=== PATIENT | male | born 1935 | race Caucasian/White ===

== ENCOUNTER 2019-01-04 11:45 | Inpatient (IN) | payer MEDICARE ==
[2019-01-04] MEDS ORDERED: SODIUM CHLORIDE 0.9% 1,000 ML IV STA (12:14)
[2019-01-04] MEDS ORDERED: IPRATROPIUM-ALBUTEROL 3 ML NEB INHALATION STA ×2 (12:14→14:11)
--- NOTE | 2019-01-04 12:33 | ED ---
SOB HPI - General Chief Complaint: Shortness of Breath Stated Complaint: SOB Time Seen by Provider: 01/04/19 11:53 Source: patient, RN notes reviewed, old records reviewed Mode of arrival: ambulatory Limitations: no limitations - History of Present Illness Initial Comments: This is a 3-year-old male the ER for evaluation patient's a poor historian bro drake to dementia. Patient presents with daughter from a care facility for evaluation regarding low blood pressure increasing shortness of breath and left breast for infection with cough. Patient himself is not getting any complaints currently. But daughter states patient has had significant shortness of breath and had a cough for about a week may or may not have had a fever she is unsure. EMS records as well as transfer paperwork is patient is a nonsmoker with no history of COPD, no known significant sick contacts. Patient does have significant heart history [facility] with history of CABG MD Complaint: shortness of breath, cough -: week(s) Severity: mild Consistency: constant Worsens With: exertion Known History Of: congestive heart failure Context: recent URI Associated Symptoms: denies other symptoms - Related Data Allergies Allergy/AdvReac Type Severity Reaction Status Date / Time Penicillins Allergy Unknown Verified 01/04/19 11:51 Review of Systems ROS Statement: Those systems with pertinent positive or pertinent negative responses have been documented in the HPI. ROS Other: All systems not noted in ROS Statement are negative. Past Medical History Past Medical History: Chest Pain / Angina, Heart Failure, Hyperlipidemia, Hypertension History of Any Multi-Drug Resistant Organisms: None Reported Past Surgical History: No Surgical Hx Reported Past Psychological History: No Psychological Hx Reported Smoking Status: Never smoker Past Alcohol Use History: None Reported Past Drug Use History: None Reported General Exam Limitations: no limitations General appearance: alert, in no apparent distress Head exam: Present: atraumatic, normocephalic, normal inspection Eye exam: Present: normal appearance, PERRL, EOMI. Absent: scleral icterus, conjunctival injection, periorbital swelling ENT exam: Present: normal exam, mucous membranes dry Neck exam: Present: normal inspection. Absent: tenderness, meningismus, lymphadenopathy Respiratory exam: Present: respiratory distress, wheezes, rhonchi, accessory muscle use, decreased breath sounds, prolonged expiratory. Absent: rales, stridor Cardiovascular Exam: Present: regular rate, normal rhythm, normal heart sounds. Absent: systolic murmur, diastolic murmur, rubs, gallop, clicks GI/Abdominal exam: Present: soft, normal bowel sounds. Absent: distended, tenderness, guarding, rebound, rigid Extremities exam: Present: normal inspection, full ROM, normal capillary refill. Absent: tenderness, pedal edema, joint swelling, calf tenderness Back exam: Present: normal inspection Neurological exam: Present: alert, oriented X3, CN II-XII intact Psychiatric exam: Present: normal affect, normal mood Skin exam: Present: warm, dry, intact, normal color. Absent: rash Course Vital Signs 01/04/19 01/04/19 01/04/19 11:47 12:32 12:50 Temperature 97.7 F Pulse Rate 71 93 99 Respiratory 24 Rate Blood Pressure 161/78 O2 Sat by Pulse 91 L Oximetry - Reevaluation(s) Reevaluation #1: 01/04/19 12:32 Medical records reviewed Reevaluation #2: 01/04/19 13:30 does feel better with acute breathing treatment Medical Decision Making - Medical Decision Making 83 male the admitted for COPD exacerbation,. Breathing Treatments and steroids - Lab Data Result diagrams: 01/04/19 12:15 01/04/19 12:15 Lab Results 01/04/19 01/04/19 01/04/19 Range/Units 12:15 12:15 12:15 WBC 9.9 (3.8-10.6) k/uL RBC 3.87 L (4.30-5.90) m/uL Hgb 12.6 L (13.0-17.5) gm/dL Hct 36.7 L (39.0-53.0) % MCV 95.0 (80.0-100.0) fL MCH 32.6 (25.0-35.0) pg MCHC 34.4 (31.0-37.0) g/dL RDW 15.3 (11.5-15.5) % Plt Count 212 (150-450) k/uL Neutrophils % 85 % Lymphocytes % 10 % Monocytes % 3 % Eosinophils % 1 % Basophils % 0 % Neutrophils # 8.5 H (1.3-7.7) k/uL Lymphocytes # 1.0 (1.0-4.8) k/uL Monocytes # 0.2 (0-1.0) k/uL Eosinophils # 0.1 (0-0.7) k/uL Basophils # 0.0 (0-0.2) k/uL PT 10.6 (9.0-12.0) sec INR 1.0 (<1.2) APTT 22.3 (22.0-30.0) sec Sodium 141 (137-145) mmol/L Potassium 4.4 (3.5-5.1) mmol/L Chloride 103 (98-107) mmol/L Carbon Dioxide 23 (22-30) mmol/L Anion Gap 15 mmol/L BUN 26 H (9-20) mg/dL Creatinine 1.35 H (0.66-1.25) mg/dL Est GFR (CKD-EPI)AfAm 55 (>60 ml/min/1.73 sqM) Est GFR (CKD-EPI)NonAf 48 (>60 ml/min/1.73 sqM) Glucose 130 H (74-99) mg/dL Calcium 9.7 (8.4-10.2) mg/dL Magnesium 1.6 (1.6-2.3) mg/dL Total Bilirubin 0.5 (0.2-1.3) mg/dL AST 51 (17-59) U/L ALT 52 (21-72) U/L Alkaline Phosphatase 107 (38-126) U/L Creatine Kinase 47 L (55-170) U/L Troponin I (0.000-0.034) ng/mL Total Protein 8.9 H (6.3-8.2) g/dL Albumin 4.1 (3.5-5.0) g/dL 01/04/19 Range/Units 12:15 WBC (3.8-10.6) k/uL RBC (4.30-5.90) m/uL Hgb (13.0-17.5) gm/dL Hct (39.0-53.0) % MCV (80.0-100.0) fL MCH (25.0-35.0) pg MCHC (31.0-37.0) g/dL RDW (11.5-15.5) % Plt Count (150-450) k/uL Neutrophils % % Lymphocytes % % Monocytes % % Eosinophils % % Basophils % % Neutrophils # (1.3-7.7) k/uL Lymphocytes # (1.0-4.8) k/uL Monocytes # (0-1.0) k/uL Eosinophils # (0-0.7) k/uL Basophils # (0-0.2) k/uL PT (9.0-12.0) sec INR (<1.2) APTT (22.0-30.0) sec Sodium (137-145) mmol/L Potassium (3.5-5.1) mmol/L Chloride (98-107) mmol/L Carbon Dioxide (22-30) mmol/L Anion Gap mmol/L BUN (9-20) mg/dL Creatinine (0.66-1.25) mg/dL Est GFR (CKD-EPI)AfAm (>60 ml/min/1.73 sqM) Est GFR (CKD-EPI)NonAf (>60 ml/min/1.73 sqM) Glucose (74-99) mg/dL Calcium (8.4-10.2) mg/dL Magnesium (1.6-2.3) mg/dL Total Bilirubin (0.2-1.3) mg/dL AST (17-59) U/L ALT (21-72) U/L Alkaline Phosphatase (38-126) U/L Creatine Kinase (55-170) U/L Troponin I 0.013 (0.000-0.034) ng/mL Total Protein (6.3-8.2) g/dL Albumin (3.5-5.0) g/dL - EKG Data -: EKG Interpreted by Me (EKG shows paced rhythm rate of 65, VA 214, QRS 90, QTc 422) - Radiology Data Radiology results: report reviewed (Chest x-rays negative for acute disease), image reviewed Disposition Clinical Impression: Acute exacerbation of chronic obstructive pulmonary disease Disposition: ADMITTED IP TO THIS HOSP Condition: Fair Is patient prescribed a controlled substance at d/c from ED?: No Referrals: Popeye Hicks MD [Primary Care Provider] - 1-2 days
[2019-01-04 12:38] LABS: Basophils % (A) 0 %; Eosinophils # (A) 0.1 k/uL (0-0.7); Eosinophils % (A) 1 %; HCT 36.7 % (39.0-53.0); HGB 12.6 gm/dL (13.0-17.5); Lymphocytes % (A) 10 %; MCH 32.6 pg (25.0-35.0); MCHC 34.4 g/dL (31.0-37.0); Mean Platelet Volume 6.4; Monocytes # (A) 0.2 k/uL (0-1.0); Monocytes % (A) 3 %; Neutrophils # (A) 8.5 k/uL (1.3-7.7); Neutrophils % (A) 85 %; Platelet Count 212 k/uL (150-450); RBC 3.87 m/uL (4.30-5.90); RDW 15.3 % (11.5-15.5); WBC 9.9 k/uL (3.8-10.6)
[2019-01-04 12:44] LABS: Albumin 4.1 g/dL (3.5-5.0); Calcium 9.7 mg/dL (8.4-10.2); Magnesium 1.6 mg/dL (1.6-2.3); Potassium 4.4 mmol/L (3.5-5.1); Total Bilirubin 0.5 mg/dL (0.2-1.3); Total Protein 8.9 g/dL (6.3-8.2)
[2019-01-04 12:46] LABS: Partial Thromboplastin Time 22.3 sec (22.0-30.0); Prothrombin Time 10.6 sec (9.0-12.0)
--- NOTE | 2019-01-04 13:17 | XR ---
EXAMINATION TYPE: XR chest 2V DATE OF EXAM: 01/04/2019 HISTORY: difficulty breathing. REFERENCE: NONE. FINDINGS: There has been a midline sternotomy. There is a bipolar pacemaker place on the left. The heart is mildly enlarged. The lungs are mildly overinflated but clear. Pleural space are clear. IMPRESSION: 1. COPD. 2. MILD CARDIOMEGALY.
[2019-01-04] MEDS ORDERED: SODIUM CHLORIDE 0.9% 1,000 ML IV SCH (13:30)
[2019-01-04] MEDS ORDERED: methylPREDNISolone SOD SUCCI 125 MG/2 ML VIAL IV STA (13:30)
[2019-01-04] MEDS ORDERED: LEVOFLOXACIN 750MG-D5W PMX 750 MG in DEXTROSE/WATER 1 150ML.BAG IVPB STA (13:31)
[2019-01-04 15:26] VITALS: BMI 27.9
[2019-01-04] MEDS: IPRATROPIUM-ALBUTEROL 3 ML NEB INHALATION SCH ×2 (15:30→20:17)
[2019-01-04] MEDS ORDERED: ACETAMINOPHEN TAB 500 MG TAB PO PRN (16:41)
[2019-01-04] MEDS ORDERED: guaiFENesin-DM 100-10MG/5ML 10 ML CUP PO PRN (16:41)
[2019-01-04] MEDS ORDERED: methylPREDNISolone SOD SUCCI 125 MG/2 ML VIAL IV SCH (18:00)
[2019-01-04] MEDS: MIRTAZAPINE 15 MG TAB PO SCH (20:09)
[2019-01-04] MEDS: LISINOPRIL 20 MG TAB PO SCH (20:10)
[2019-01-04] MEDS: ATORVASTATIN 20 MG TAB PO SCH (20:10)
[2019-01-04] MEDS: MELATONIN 5 MG TABLET PO SCH (20:10)
[2019-01-04] MEDS: amLODIPine 5 MG TAB PO SCH (20:10)
[2019-01-04] MEDS: ATENOLOL 50 MG TAB PO SCH (20:10)
[2019-01-04] MEDS: methylPREDNISolone SOD SUCCI 40 MG/ML 1 ML VIAL IV SCH (23:26)
[2019-01-04] MEDS ORDERED: FUROSEMIDE 10 MG/ML 4 ML VIAL IV STA (23:29)
--- NOTE | 2019-01-04 23:46 | P.HPIM ---
History of Present Illness H&P Date: 01/04/19 Chief Complaint: Shortness of breath Patient is a 83-year-old male with a known history of coronary artery disease with history of stent placement, history of CABG several years ago, chronic CHF with ejection fraction unknown, history of AICD placement, hypertension, hyperli pidemia and dementia was brought to the hospital from long-term facility due to complaints of shortness of breath and cough. Patient was also to have low blood pressure at that facility. Patient has been having significant shortness of breath and cough. Past 1 week. Patient was having subjective fevers which is unsure. Patient was started on azithromycin and steroid prednisone but without much improvement. Patient was also having leg swelling but it is not worsening recently. Patient does not have a history of COPD or history of smoking in the past. No fever admission. No complaints of chest pain. No nausea vomiting or abdominal pain or diarrhea. No headache or dizziness or lightheadedness. X-ray showed COPD and mild cardiomegaly. EKG showed ventricular pacer rhythm. Patient was given DuoNeb's breathing treatments and Solu-Medrol and IV fluid bolus in the ER. BNP 2059 Review of Systems Constitutional: Patient denies any fever or chills . No generalized weakness or weight loss. Abdomen: Patient denied nausea vomiting and diarrhea and abdominal pain. Cardiovascular: Patient denies any chest pain or short of breath no pa lpitations. Swelling. Respiratory: Patient does have cough without much sputum production. Does have shortness of breath Neurologic: Patient denied any numbness or tingling headache. Musculoskeletal: Patient denies any complaints of joint swelling or deformity. Skin: Negative Psychiatric: Negative Endocrine: No heat or cold intolerance. No recent weight gain. Genitourinary: No dysuria or hematuria. All other 14 point ROS negative except the above Past Medical History Past Medical History: Cancer, Chest Pain / Angina, Heart Failure, CVA/TIA, Hyperlipidemia, Hypertension, Memory Impairment History of Any Multi-Drug Resistant Organisms: None Reported Past Surgical History: Heart Catheterization With Stent, Pacemaker Additional Past Surgical History / Comment(s): Open Heart surgery Past Anesthesia/Blood Transfusion Reactions: No Reported Reaction Date of Last Stent Placement:: 2014 Type of Cardiac Device: Permanent Pacemaker Device Placement Date:: 2014 Past Psychological History: No Psychological Hx Reported Smoking Status: Never smoker Past Alcohol Use History: None Reported Past Drug Use History: None Reported - Past Family History Father Family Medical History: No Reported History Medications and Allergies Home Medications Medication Instructions Recorded Confirmed Type Acetaminophen [Tylenol] 500 - 1,000 mg PO BID PRN 01/04/19 01/04/19 History Albuterol Inhaler [Ventolin Hfa 1 - 2 puff INHALATION RT-Q6H PRN 01/04/19 01/04/19 History Inhaler] Atenolol [Tenormin] 50 mg PO BID@729,199901/04/19 01/04/19 History Atorvastatin [Lipitor] 20 mg PO HS@199901/04/19 01/04/19 History Azithromycin 250 mg PO DAILY@79901/04/19 01/04/19 History Cholecalciferol (Vitamin D3) 2,000 unit PO DAILY@72901/04/19 01/04/19 History [Vitamin D3] Clopidogrel Bisulfate [Plavix] 75 mg PO DAILY@72901/04/19 01/04/19 History Enalapril Maleate [Vasotec] 20 mg PO BID@799,199901/04/19 01/04/19 History Folic Acid 0.4 mg PO DAILY@72901/04/19 01/04/19 History Guaifenesin/Dextromethorphan 5 ml PO Q46H PRN 01/04/19 01/04/19 History [guaiFENesin DM] Loratadine 10 mg PO DAILY@0801/04/19 01/04/19 History Melatonin 10 mg PO HS@199901/04/19 01/04/19 History Mirtazapine 30 mg PO HS@199901/04/19 01/04/19 History amLODIPine [Norvasc] 5 mg PO BID@729,199901/04/19 01/04/19 History predniSONE 20 mg PO DAILY@0801/04/19 01/04/19 History Allergies Allergy/AdvReac Type Severity Reaction Status Date / Time Penicillins Allergy Unknown Verified 01/04/19 13:31 Physical Exam Vitals: Vital Signs Temp Pulse Pulse Resp BP BP Pulse Ox 01/04/19 15:41 88 01/04/19 15:30 92 01/04/19 15:25 98.1 F 70 16 160/76 95 01/04/19 14:32 67 18 146/88 96 01/04/19 13:58 65 18 91 L 01/04/19 13:37 97.9 F 66 18 132/71 97 01/04/19 12:50 99 01/04/19 12:32 93 01/04/19 11:47 97.7 F 71 24 161/78 91 L Intake and Output 01/04/19 01/04/19 01/04/19 06:59 14:59 22:59 Other: Weight 88.451 kg PHYSICAL EXAMINATION: Patient is lying in the bed comfortably, no acute distress, awake alert and oriented. She is lethargic. HEENT: Normocephalic. Neck is supple. Pupils reactive. Nostrils clear. Oral cavity is moist. Ears reveal no drainage. Neck reveals no JVD, carotid bruits, or thyromegaly. CHEST EXAMINATION: Trachea is central. Symmetrical expansion. Bilateral diminished air entry and expiratory wheezing and prolonged expiration. No crackles or rhonchi. CARDIAC: Normal S1, S2 with no gallops. No murmurs ABDOMEN: Soft. Bowel sounds normal. No organomegaly. No abdominal bruits. Extremities: 2+ edema. No clubbing or cyanosis Neurologically awake, alert, oriented x2-3 with well-coordinated movements. No focal deficits noted. Patient does have underlying cognitive impairment. Skin: No rash or skin lesions. Psychiatric: Coperative. Nonsuicidal Musculoskeletal: No joint swelling or deformity. Normal range of motion. Results CBC & Chem 7: 01/04/19 12:15 01/04/19 12:15 Labs: Abnormal Lab Results - Last 24 Hours (Table) 01/04/19 01/04/19 Range/Units 12:15 12:15 RBC 3.87 L (4.30-5.90) m/uL Hgb 12.6 L (13.0-17.5) gm/dL Hct 36.7 L (39.0-53.0) % Neutrophils # 8.5 H (1.3-7.7) k/uL BUN 26 H (9-20) mg/dL Creatinine 1.35 H (0.66-1.25) mg/dL Glucose 130 H (74-99) mg/dL Creatine Kinase 47 L (55-170) U/L Total Protein 8.9 H (6.3-8.2) g/dL Thrombosis Risk Factor Assmnt - DVT/VTE Prophylaxis DVT/VTE Prophylaxis: Pharmacologic Prophylaxis ordered - Choose All That Apply Any of the Below Risk Factors Present?: Yes Each Factor Represents 1 point: Abnormal pulmonary function (COPD), Obesity (BMI >25) Other Risk Factors: No Other congenital or acquired thrombophilia - If yes, enter type in comment: No Thrombosis Risk Factor Assessment Total Risk Factor Score: 2 Thrombosis Risk Factor Assessment Level: Low Risk Assessment and Plan Assessment: Acute tracheobronchitis with bronchospasm. Possible underlying COPD with exacerbation. Failed outpatient therapy. Acute hypoxic respiratory failure secondary to above. History of coronary artery disease status post CABG History of AICD placement History of CVA/TIA. Hypertension Dementia/memory impairment Chronic CHF with ejection fraction unknown. DVT prophylaxis with Lovenox. Plan: Agent will be continued on IV Solu-Medrol and duo nebs. Oxygen therapy. Will hold IV fluids. With antibiotics in the form of Levaquin. Chest x-ray showed no evidence of CHF. BNP is not significantly elevated. Will continue the blood pressure medications and adjust dose. Further recommendations based on the clinical course. Prognosis is guarded. Discussed with his son at bedside in detail. Time with Patient: Greater than 30
[2019-01-05 07:17] LABS: Basophils % (A) 0 %; Eosinophils % (A) 0 %; HCT 34.9 % (39.0-53.0); HGB 11.3 gm/dL (13.0-17.5); Lymphocytes # (A) 0.8 k/uL (1.0-4.8); Lymphocytes % (A) 7 %; MCHC 32.3 g/dL (31.0-37.0); MCV 95.8 fL (80.0-100.0); Mean Platelet Volume 6.6; Monocytes # (A) 0.3 k/uL (0-1.0); Monocytes % (A) 3 %; Neutrophils # (A) 9.8 k/uL (1.3-7.7); Neutrophils % (A) 89 %; Platelet Count 220 k/uL (150-450); RBC 3.64 m/uL (4.30-5.90); RDW 15.2 % (11.5-15.5); WBC 10.9 k/uL (3.8-10.6)
[2019-01-05 07:29] LABS: Calcium 9.6 mg/dL (8.4-10.2); Potassium 4.8 mmol/L (3.5-5.1)
[2019-01-05] MEDS: IPRATROPIUM-ALBUTEROL 3 ML NEB INHALATION SCH ×4 (08:49→20:38)
[2019-01-05] MEDS: ATENOLOL 50 MG TAB PO SCH ×2 (09:02→20:10)
[2019-01-05] MEDS: FOLIC ACID 1 MG TAB PO SCH (09:02)
[2019-01-05] MEDS: CLOPIDOGREL 75 MG TAB PO SCH (09:02)
[2019-01-05] MEDS: LISINOPRIL 20 MG TAB PO SCH ×2 (09:02→20:10)
[2019-01-05] MEDS: amLODIPine 5 MG TAB PO SCH ×2 (09:03→20:10)
[2019-01-05] MEDS: LORATADINE 10 MG TAB PO SCH (09:03)
[2019-01-05] MEDS: methylPREDNISolone SOD SUCCI 40 MG/ML 1 ML VIAL IV SCH ×3 (09:04→22:55)
[2019-01-05] MEDS: ENOXAPARIN 40 MG/0.4 ML SYRINGE SQ SCH (09:04)
[2019-01-05] MEDS: CHOLECALCIFEROL 1,000 UNIT TAB PO SCH (09:04)
[2019-01-05] MEDS ORDERED: LEVOFLOXACIN 750MG-D5W PMX 750 MG in DEXTROSE/WATER 1 150ML.BAG IVPB SCH (16:00)
[2019-01-05] MEDS: MELATONIN 5 MG TABLET PO SCH (20:10)
[2019-01-05] MEDS: MIRTAZAPINE 15 MG TAB PO SCH (20:10)
[2019-01-05] MEDS: ATORVASTATIN 20 MG TAB PO SCH (20:10)
--- NOTE | 2019-01-06 02:32 | P.PN ---
Subjective Progress Note Date: 01/05/19 Principal diagnosis: Acute COPD exacerbation Tracheobronchitis. Failed outpatient therapy Patient is a 83-year-old male with a known history of coronary artery disease with history of stent placement, history of CABG several years ago, chronic CHF with ejection fraction unknown, history of AICD placement, hypertension, hyperlipidemia and dementia was brought to the hospital from [facility] facility due to complaints of shortness of breath and cough. Patient was also to have low blood pressure at that facility. Patient has been having significant shortness of breath and cough. Past 1 week. Patient was having subjective fevers which is unsure. Patient was started on azithromycin and steroid prednisone but without much improvement. Patient was also having leg sw elling but it is not worsening recently. Patient does not have a history of COPD or history of smoking in the past. No fever admission. No complaints of chest pain. No nausea vomiting or abdominal pain or diarrhea. No headache or dizziness or lightheadedness. X-ray showed COPD and mild cardiomegaly. EKG showed ventricular pacer rhythm. Patient was given DuoNeb's breathing treatments and Solu-Medrol and IV fluid bolus in the ER. BNP 205901/05/2019 Patient is currently sitting in the bed comfortably and is tolerating oral diet. Breathing status is much improved now able to walk to the bathroom but still dyspneic compared to normal. Patient is being converted on IV steroids and breathing treatments. Antibiotics in the form of Levaquin. Continue with the oxygen therapy and gradually titrate down. Anticipate discharge in next 24-48 hours. Medications reviewed. Objective - Vital Signs Vital signs: Vital Signs Temp 98.4 F 01/05/19 07:00 Pulse 80 01/05/19 16:35 Resp 16 01/05/19 07:00 BP 165/77 01/05/19 07:00 Pulse Ox 92 L 01/05/19 16:26 Intake & Output 01/04/19 01/05/19 01/05/19 18:59 06:59 18:59 Intake Total 296 920 Balance 296 920 Weight 88.451 kg Intake: Oral 296 920 Other: Voiding Method Toilet Incontinent Incontinent # Voids 2 - Exam PHYSICAL EXAMINATION: Patient is lying in the bed comfortably, no acute distress, awake alert and oriented.. HEENT: Normocephalic. Neck is supple. Pupils reactive. Nostrils clear. Oral cavity is moist. Ears reveal no drainage. Neck reveals no JVD, carotid bruits, or thyromegaly. CHEST EXAMINATION: Trachea is central. Symmetrical expansion. Expiratory wheeze present. Scattered rhonchi. Otherwise Lung cox clear to auscultation and percussion. CARDIAC: Normal S1, S2 with no gallops. No murmurs ABDOMEN: Soft. Bowel sounds normal. No organomegaly. No abdominal bruits. Extremities: reveal no edema. No clubbing or cyanosis Neurologically awake, alert, oriented x3 with well-coordinated movements. No focal deficits noted Skin: No rash or skin lesions. Psychiatric: Coperative. Nonsuicidal Musculoskeletal: No joint swelling or deformity. Normal range of motion. - Labs CBC & Chem 7: 01/05/19 06:06 01/05/19 06:06 Labs: Abnormal Lab Results - Last 24 Hours (Table) 01/05/19 01/05/19 Range/Units 06:06 06:06 WBC 10.9 H (3.8-10.6) k/uL RBC 3.64 L (4.30-5.90) m/uL Hgb 11.3 L (13.0-17.5) gm/dL Hct 34.9 L (39.0-53.0) % Neutrophils # 9.8 H (1.3-7.7) k/uL Lymphocytes # 0.8 L (1.0-4.8) k/uL BUN 33 H (9-20) mg/dL Creatinine 1.65 H (0.66-1.25) mg/dL Glucose 147 H (74-99) mg/dL Microbiology - Last 24 Hours (Table) 01/04/19 12:15 Blood Culture - Preliminary Blood No Growth after 24 hours Assessment and Plan Assessment: Acute tracheobronchitis with bronchospasm. Possible underlying COPD with exacerbation. Failed outpatient therapy. Acute hypoxic respiratory failure secondary to above. History of coronary artery disease status post CABG History of AICD placement History of CVA/TIA. Hypertension Dementia/memory impairment Chronic CHF with ejection fraction unknown. DVT prophylaxis with Lovenox. Plan: Pt will be continued on IV Solu-Medrol and duo nebs. Oxygen therapy. Will hold IV fluids. With antibiotics in the form of Levaquin. Chest x-ray showed no evidence of CHF. BNP is not significantly elevated. Will continue the blood pressure medications and adjust dose. Further recommendations based on the clinical course. Prognosis is guarded. Discussed with his son at bedside in detail. Time with Patient: Greater than 30
[2019-01-06 07:53] LABS: Anisocytosis Slight; Basophils % (A) 0 %; Eosinophils % (A) 0 %; HCT 34.6 % (39.0-53.0); HGB 11.4 gm/dL (13.0-17.5); Lymphocytes # (A) 0.7 k/uL (1.0-4.8); Lymphocytes % (A) 4 %; MCH 31.4 pg (25.0-35.0); MCV 95.2 fL (80.0-100.0); Mean Platelet Volume 6.9; Monocytes # (A) 0.8 k/uL (0-1.0); Monocytes % (A) 5 %; Neutrophils # (A) 15.2 k/uL (1.3-7.7); Neutrophils % (A) 90 %; Platelet Count 225 k/uL (150-450); RBC 3.64 m/uL (4.30-5.90); RDW 16.5 % (11.5-15.5); WBC 16.8 k/uL (3.8-10.6)
[2019-01-06 08:06] LABS: Calcium 9.7 mg/dL (8.4-10.2); Potassium 4.9 mmol/L (3.5-5.1)
[2019-01-06] MEDS: IPRATROPIUM-ALBUTEROL 3 ML NEB INHALATION SCH ×4 (08:30→21:06)
[2019-01-06] MEDS: methylPREDNISolone SOD SUCCI 40 MG/ML 1 ML VIAL IV SCH ×3 (10:26→23:47)
[2019-01-06] MEDS: LISINOPRIL 20 MG TAB PO SCH ×2 (10:26→20:37)
[2019-01-06] MEDS: ENOXAPARIN 40 MG/0.4 ML SYRINGE SQ SCH (10:26)
[2019-01-06] MEDS: FOLIC ACID 1 MG TAB PO SCH (10:27)
[2019-01-06] MEDS: CHOLECALCIFEROL 1,000 UNIT TAB PO SCH (10:27)
[2019-01-06] MEDS: ATENOLOL 50 MG TAB PO SCH ×2 (10:27→20:37)
[2019-01-06] MEDS: amLODIPine 5 MG TAB PO SCH ×2 (10:27→20:37)
[2019-01-06] MEDS: CLOPIDOGREL 75 MG TAB PO SCH (10:27)
[2019-01-06] MEDS: LORATADINE 10 MG TAB PO SCH (10:28)
[2019-01-06] MEDS: ATORVASTATIN 20 MG TAB PO SCH (20:37)
[2019-01-06] MEDS: MIRTAZAPINE 15 MG TAB PO SCH (20:37)
[2019-01-06] MEDS: MELATONIN 5 MG TABLET PO SCH (20:39)
[2019-01-06] MEDS ORDERED: hydrALAZINE HCL 20 MG/ML 1 ML VIAL IVP PRN (22:32)
[2019-01-07 07:35] LABS: Basophils % (A) 0 %; Eosinophils # (A) 0.1 k/uL (0-0.7); Eosinophils % (A) 1 %; HCT 35.9 % (39.0-53.0); HGB 11.5 gm/dL (13.0-17.5); Lymphocytes # (A) 0.5 k/uL (1.0-4.8); Lymphocytes % (A) 4 %; MCH 30.6 pg (25.0-35.0); MCV 95.7 fL (80.0-100.0); Mean Platelet Volume 6.5; Monocytes # (A) 0.5 k/uL (0-1.0); Monocytes % (A) 4 %; Neutrophils # (A) 11.4 k/uL (1.3-7.7); Neutrophils % (A) 90 %; Platelet Count 227 k/uL (150-450); RBC 3.75 m/uL (4.30-5.90); RDW 15.2 % (11.5-15.5); WBC 12.7 k/uL (3.8-10.6)
[2019-01-07 07:44] LABS: Calcium 9.6 mg/dL (8.4-10.2); Potassium 4.5 mmol/L (3.5-5.1)
[2019-01-07] MEDS: IPRATROPIUM-ALBUTEROL 3 ML NEB INHALATION SCH ×4 (08:33→19:50)
[2019-01-07] MEDS: amLODIPine 5 MG TAB PO SCH ×2 (09:05→20:46)
[2019-01-07] MEDS: predniSONE 20 MG TAB PO SCH (09:05)
[2019-01-07] MEDS: CHOLECALCIFEROL 1,000 UNIT TAB PO SCH (09:06)
[2019-01-07] MEDS: ATENOLOL 50 MG TAB PO SCH ×2 (09:06→20:46)
[2019-01-07] MEDS: LORATADINE 10 MG TAB PO SCH (09:06)
[2019-01-07] MEDS: LISINOPRIL 20 MG TAB PO SCH ×2 (09:06→20:46)
[2019-01-07] MEDS: FOLIC ACID 1 MG TAB PO SCH (09:06)
[2019-01-07] MEDS: CLOPIDOGREL 75 MG TAB PO SCH (09:06)
[2019-01-07] MEDS: ENOXAPARIN 30 MG/0.3 ML SYRINGE SQ SCH (09:06)
[2019-01-07] MEDS ORDERED: LEVOFLOXACIN 750 MG TAB PO SCH (16:00)
[2019-01-07] MEDS ORDERED: LEVOFLOXACIN 750MG-D5W PMX 750 MG in DEXTROSE/WATER 1 150ML.BAG IVPB SCH (16:00)
[2019-01-07] MEDS: MELATONIN 5 MG TABLET PO SCH (20:46)
[2019-01-07] MEDS: ATORVASTATIN 20 MG TAB PO SCH (20:46)
[2019-01-07] MEDS: MIRTAZAPINE 15 MG TAB PO SCH (20:46)
--- NOTE | 2019-01-07 23:33 | P.PN ---
Subjective Progress Note Date: 01/06/19 Principal diagnosis: Acute COPD exacerbation Tracheobronchitis. Failed outpatient therapy Patient is a 83-year-old male with a known history of coronary artery disease with history of stent placement, history of CABG several years ago, chronic CHF with ejection fraction unknown, history of AICD placement, hypertension, hyperlipidemia and dementia was brought to the hospital from senior care facility due to complaints of shortness of breath and cough. Patient was also to have low blood pressure at that facility. Patient has been having significant shortness of breath and cough. Past 1 week. Patient was having subjective fevers which is unsure. Patient was started on azithromycin and steroid prednisone but without much improvement. Patient was also having leg sw elling but it is not worsening recently. Patient does not have a history of COPD or history of smoking in the past. No fever admission. No complaints of chest pain. No nausea vomiting or abdominal pain or diarrhea. No headache or dizziness or lightheadedness. X-ray showed COPD and mild cardiomegaly. EKG showed ventricular pacer rhythm. Patient was given DuoNeb's breathing treatments and Solu-Medrol and IV fluid bolus in the ER. BNP 205901/05/2019 Patient is currently sitting in the bed comfortably and is tolerating oral diet. Breathing status is much improved now able to walk to the bathroom but still dyspneic compared to normal. Patient is being converted on IV steroids and breathing treatments. Antibiotics in the form of Levaquin. Continue with the oxygen therapy and gradually titrate down. Anticipate discharge in next 24-48 hours. 01/06/2019 Patient is currently sitting in a chair comfortably. Patient is still having wheezing on bilateral lungs. Renal function worsened with creatinine level I.91 today. Patient is being continued on IV steroids which will be changed to by mouth. Continue with antibiotics in the form of Levaquin. Patient is still requiring oxygen therapy. Follow up renal function tomorrow. Encourage ambulation. Otherwise patient mentation is slightly confused and hallucinating today. Medications reviewed. Objective - Vital Signs Vital signs: Vital Signs Temp 98.0 F 01/06/19 19:52 Pulse 76 01/06/19 21:21 Resp 17 01/06/19 19:52 BP 180/84 01/06/19 20:36 Pulse Ox 91 L 01/06/19 19:52 Intake & Output 01/06/19 01/06/19 01/07/19 06:59 18:59 06:59 Intake Total 1256 536 Output Total 200 Balance 1056 536 Intake: Oral 1256 536 Output: Urine 200 Other: Voiding Method Incontinent Incontinent # Voids 2 - Exam PHYSICAL EXAMINATION: Patient is lying in the bed comfortably, no acute distress, awake alert and oriented.. HEENT: Normocephalic. Neck is supple. Pupils reactive. Nostrils clear. Oral cavity is moist. Ears reveal no drainage. Neck reveals no JVD, carotid bruits, or thyromegaly. CHEST EXAMINATION: Trachea is central. Symmetrical expansion. Expiratory wheeze present. Scattered rhonchi. Otherwise Lung cox clear to auscultation and percussion. CARDIAC: Normal S1, S2 with no gallops. No murmurs ABDOMEN: Soft. Bowel sounds normal. No organomegaly. No abdominal bruits. Extremities: reveal no edema. No clubbing or cyanosis Neurologically awake, alert, oriented x3 with well-coordinated movements. No focal deficits noted Skin: No rash or skin lesions. Psychiatric: Coperative. Nonsuicidal Musculoskeletal: No joint swelling or deformity. Normal range of motion. - Labs CBC & Chem 7: 01/07/19 07:01 01/07/19 07:01 Labs: Abnormal Lab Results - Last 24 Hours (Table) 01/06/19 01/06/19 Range/Units 07:18 07:18 WBC 16.8 H (3.8-10.6) k/uL RBC 3.64 L (4.30-5.90) m/uL Hgb 11.4 L (13.0-17.5) gm/dL Hct 34.6 L (39.0-53.0) % RDW 16.5 H (11.5-15.5) % Neutrophils # 15.2 H (1.3-7.7) k/uL Lymphocytes # 0.7 L (1.0-4.8) k/uL BUN 46 H (9-20) mg/dL Creatinine 1.91 H (0.66-1.25) mg/dL Glucose 141 H (74-99) mg/dL Microbiology - Last 24 Hours (Table) 01/04/19 12:15 Blood Culture - Preliminary Blood No Growth after 48 hours Assessment and Plan Assessment: Acute tracheobronchitis with bronchospasm. Possible underlying COPD with exace rbation. Failed outpatient therapy. Acute hypoxic respiratory failure secondary to above. [place]. Possible delirium likely due to steroid-induced. History of coronary artery disease status post CABG History of AICD placement History of CVA/TIA. Hypertension Dementia/memory impairment Chronic CHF with ejection fraction unknown. DVT prophylaxis with Lovenox. Plan: Pt to be continued on IV Solu-Medrol and duo nebs. Changed to by mouth. Oxygen therapy. Will hold IV fluids. With antibiotics in the form of Levaquin. Chest x-ray showed no evidence of CHF. BNP is not significantly elevated. Will continue the blood pressure medications and adjust dose. Further recommendations based on the clinical course. Prognosis is guarded. Discussed with his son at bedside in detail. Time with Patient: Greater than 30
--- NOTE | 2019-01-07 23:37 | P.PN ---
Subjective Progress Note Date: 01/07/19 Principal diagnosis: Acute COPD exacerbation Tracheobronchitis. Failed outpatient therapy Patient is a 83-year-old male with a known history of coronary artery disease with history of stent placement, history of CABG several years ago, chronic CHF with ejection fraction unknown, history of AICD placement, hypertension, hyperlipidemia and dementia was brought to the hospital [facility] due to complaints of shortness of breath and cough. Patient was also to have low blood pressure at that facility. Patient has been having significant shortness of breath and cough. Past 1 week. Patient was having subjective fevers which is unsure. Patient was started on azithromycin and steroid prednisone but without much improvement. Patient was also having leg sw elling but it is not worsening recently. Patient does not have a history of COPD or history of smoking in the past. No fever admission. No complaints of chest pain. No nausea vomiting or abdominal pain or diarrhea. No headache or dizziness or lightheadedness. X-ray showed COPD and mild cardiomegaly. EKG showed ventricular pacer rhythm. Patient was given DuoNeb's breathing treatments and Solu-Medrol and IV fluid bolus in the ER. BNP 205901/05/2019 Patient is currently sitting in the bed comfortably and is tolerating oral diet. Breathing status is much improved now able to walk to the bathroom but still dyspneic compared to normal. Patient is being converted on IV steroids and breathing treatments. Antibiotics in the form of Levaquin. Continue with the oxygen therapy and gradually titrate down. Anticipate discharge in next 24-48 hours. 01/06/2019 Patient is currently sitting in a chair comfortably. Patient is still having wheezing on bilateral lungs. Renal function worsened with creatinine level I.91 today. Patient is being continued on IV steroids which will be changed to by mouth. Continue with antibiotics in the form of Levaquin. Patient is still requiring oxygen therapy. Follow up renal function tomorrow. Encourage ambulation. Otherwise patient mentation is slightly confused and hallucinating today. 01/07/2019 Patient is currently sitting in a chair comfortably. Mental status slightly improved compared to yesterday. Patient still having expiratory wheeze. Currently being continued on prednisone and DuoNeb's and antibiotics. No cough or sputum production. Patient is still requiring oxygen with another cannula at 2 L. Titrating down to 2 minutes. [place] increased activity and oral intake. Anticipate to be discharged to rehab in next 24 hours. Medications reviewed. Objective - Vital Signs Vital signs: Vital Signs Temp 97.9 F 01/07/19 20:00 Pulse 76 01/07/19 20:02 Resp 20 01/07/19 20:00 BP 147/67 01/07/19 20:00 Pulse Ox 95 01/07/19 20:00 Intake & Output 01/07/19 01/07/19 01/08/19 06:59 18:59 06:59 Intake Total 100 250 Output Total 100 Balance 100 -100 250 Intake: Oral 100 250 Output: Urine 100 Other: Voiding Method Incontinent Incontinent Incontinent # Voids 1 1 2 - Exam PHYSICAL EXAMINATION: Patient is lying in the bed comfortably, no acute distress, awake alert and oriented.. HEENT: Normocephalic. Neck is supple. Pupils reactive. Nostrils clear. Oral c avity is moist. Ears reveal no drainage. Neck reveals no JVD, carotid bruits, or thyromegaly. CHEST EXAMINATION: Trachea is central. Symmetrical expansion. Expiratory wheeze present. Scattered rhonchi. Otherwise Lung cox clear to auscultation and percussion. CARDIAC: Normal S1, S2 with no gallops. No murmurs ABDOMEN: Soft. Bowel sounds normal. No organomegaly. No abdominal bruits. Extremities: reveal no edema. No clubbing or cyanosis Neurologically awake, alert, oriented x3 with well-coordinated movements. No focal deficits noted Skin: No rash or skin lesions. Psychiatric: Coperative. Nonsuicidal Musculoskeletal: No joint swelling or deformity. Normal range of motion. - Labs CBC & Chem 7: 01/07/19 07:01 01/07/19 07:01 Labs: Abnormal Lab Results - Last 24 Hours (Table) 01/07/19 01/07/19 Range/Units 07:01 07:01 WBC 12.7 H (3.8-10.6) k/uL RBC 3.75 L (4.30-5.90) m/uL Hgb 11.5 L (13.0-17.5) gm/dL Hct 35.9 L (39.0-53.0) % Neutrophils # 11.4 H (1.3-7.7) k/uL Lymphocytes # 0.5 L (1.0-4.8) k/uL BUN 56 H (9-20) mg/dL Creatinine 1.79 H (0.66-1.25) mg/dL Glucose 148 H (74-99) mg/dL Microbiology - Last 24 Hours (Table) 01/04/19 12:15 Blood Culture - Preliminary Blood No Growth after 72 hours Assessment and Plan Assessment: Acute tracheobronchitis with bronchospasm. Possible underlying COPD with exacerbation. Failed outpatient therapy. Acute hypoxic respiratory failure secondary to above. Hallucinations. Possible delirium likely due to steroid-induced. Improved now. History of coronary artery disease status post CABG History of AICD placement History of CVA/TIA. Hypertension Dementia/memory impairment Chronic CHF with ejection fraction unknown. DVT prophylaxis with Lovenox. Plan: Pt to be continued on IV Solu-Medrol and duo nebs. Changed to by mouth. Oxygen therapy. Will hold IV fluids. With antibiotics in the form of Levaquin. Chest x-ray showed no evidence of CHF. BNP is not significantly elevated. Will continue the blood pressure medications and adjust dose. Further recommendations based on the clinical course. Prognosis is guarded. Discussed with his at bedside in detail. Time with Patient: Greater than 30
[2019-01-08] MEDS: ENOXAPARIN 30 MG/0.3 ML SYRINGE SQ SCH (08:34)
[2019-01-08] MEDS: amLODIPine 5 MG TAB PO SCH (08:35)
[2019-01-08] MEDS: FOLIC ACID 1 MG TAB PO SCH (08:35)
[2019-01-08] MEDS: CHOLECALCIFEROL 1,000 UNIT TAB PO SCH (08:36)
[2019-01-08] MEDS: LISINOPRIL 20 MG TAB PO SCH (08:36)
[2019-01-08] MEDS: ATENOLOL 50 MG TAB PO SCH (08:36)
[2019-01-08] MEDS: LORATADINE 10 MG TAB PO SCH (08:36)
[2019-01-08] MEDS: predniSONE 20 MG TAB PO SCH (08:37)
[2019-01-08] MEDS: CLOPIDOGREL 75 MG TAB PO SCH (08:37)
[2019-01-08] MEDS: IPRATROPIUM-ALBUTEROL 3 ML NEB INHALATION SCH ×2 (08:43→11:34)
[2019-01-08 11:37] VITALS: BP 164/76; RESP 18; TEMP 97
[2019-01-08 11:39] VITALS: PULSE 70
== END 2019-01-08 13:44 | disposition home health service (06) | DRG 190 ==
LOC: EC 11:45 → 4SSUR 13:30 → 4MS4W 01-08 09:56
PROVIDERS: ADMIT Internal Medicine; ATTEND Internal Medicine
DX: J44.1 Chronic obstructive pulmonary disease with (acute) exacerbation (principal); J96.01 Acute respiratory failure with hypoxia; R44.3 Hallucinations, unspecified; J44.0 Chronic obstructive pulmonary disease with (acute) lower respiratory infection; I11.0 Hypertensive heart disease with heart failure; I50.9 Heart failure, unspecified; F03.90 Unspecified dementia, unspecified severity, without behavioral disturbance, psychotic disturbance, mood disturbance, and anxiety; E78.5 Hyperlipidemia, unspecified; I25.10 Atherosclerotic heart disease of native coronary artery without angina pectoris; J20.9 Acute bronchitis, unspecified; R41.0 Disorientation, unspecified; T38.0X5A Adverse effect of glucocorticoids and synthetic analogues, initial encounter; E66.9 Obesity, unspecified; Z68.28 Body mass index [BMI] 28.0-28.9, adult; Z79.02 Long term (current) use of antithrombotics/antiplatelets; Z79.899 Other long term (current) drug therapy; Z79.52 Long term (current) use of systemic steroids; Z86.73 Personal history of transient ischemic attack (TIA), and cerebral infarction without residual deficits; Z95.1 Presence of aortocoronary bypass graft; Z95.5 Presence of coronary angioplasty implant and graft; Z95.810 Presence of automatic (implantable) cardiac defibrillator
CPT/HCPCS: 36415; 71046; 80048; 80053; 82550; 83735; 83880; 84484; 85025; 85610; 85730; 87040; 93005; 94640; 94760; 96365; 96375; 99285

== ENCOUNTER 2019-03-09 07:50 | Inpatient (IN) | payer MEDICARE ==
[2019-03-09 08:29] LABS: Basophils % (A) 0 %; Eosinophils # (A) 0.1 k/uL (0-0.7); Eosinophils % (A) 2 %; HCT 33.9 % (39.0-53.0); HGB 11.1 gm/dL (13.0-17.5); Lymphocytes # (A) 1.9 k/uL (1.0-4.8); Lymphocytes % (A) 22 %; MCH 32.6 pg (25.0-35.0); MCHC 32.9 g/dL (31.0-37.0); MCV 99.2 fL (80.0-100.0); Macrocytosis Slight; Mean Platelet Volume 6.4; Monocytes # (A) 0.6 k/uL (0-1.0); Monocytes % (A) 7 %; Neutrophils # (A) 5.9 k/uL (1.3-7.7); Neutrophils % (A) 67 %; Platelet Count 122 k/uL (150-450); RBC 3.42 m/uL (4.30-5.90); RDW 15.7 % (11.5-15.5); WBC 8.9 k/uL (3.8-10.6)
--- NOTE | 2019-03-09 08:38 | ED ---
SOB HPI - General Chief Complaint: Shortness of Breath Stated Complaint: ANA Time Seen by Provider: 03/09/19 07:52 Source: patient, EMS Mode of arrival: EMS Limitations: no limitations - History of Present Illness Initial Comments: 84 year old male history of dementia, COPD, congestive heart failure with what appears to be a demand pacemaker ([place]) , CAD presenting to the ER today for cc of worsening SOB. Patient family told EMS that patient has had increasing SOB x 1 month that appears to be worsenign for the past week> Patient currently states answering questions appropriately that he is short of breath, denies chest pain, nausea, epigastric or jaw pain. Denies back pain or arm pain. patient denies any other complaints. Patient given solumedrol 125mg and 2 duoneb treatments during transit to emergency department, patient recently treated for an upper respiratory infection. Patient denies cough. Upon arrival patient appears nontoxic no distress, slight increase in worse of breathing. - Related Data Home Medications Medication Instructions Recorded Confirmed Acetaminophen [Tylenol] 500 - 1,000 mg PO BID PRN 01/04/19 01/04/19 Albuterol Inhaler [Ventolin Hfa 1 - 2 puff INHALATION RT-Q6H PRN 01/04/19 01/04/19 Inhaler] Atenolol [Tenormin] 50 mg PO BID@01/04/19 01/04/19 Atorvastatin [Lipitor] 20 mg PO HS@199901/04/19 01/04/19 Cholecalciferol (Vitamin D3) 2,000 unit PO DAILY@72901/04/19 01/04/19 [Vitamin D3] Clopidogrel Bisulfate [Plavix] 75 mg PO DAILY@72901/04/19 01/04/19 Enalapril Maleate [Vasotec] 20 mg PO BID@08,199901/04/19 01/04/19 Folic Acid 0.4 mg PO DAILY@72901/04/19 01/04/19 Guaifenesin/Dextromethorphan 5 ml PO Q46H PRN 01/04/19 01/04/19 [guaiFENesin DM] Loratadine 10 mg PO DAILY@79901/04/19 01/04/19 Melatonin 10 mg PO HS@199901/04/19 01/04/19 Mirtazapine 30 mg PO HS@199901/04/19 01/04/19 amLODIPine [Norvasc] 5 mg PO BID@0730,199901/04/19 01/04/19 Previous Rx's Medication Instructions Recorded Levofloxacin [Levaquin] 750 mg PO Q48H #2 tab 01/07/19 predniSONE See Taper PO DIRECTED #18 tab 01/07/19 Allergies Allergy/AdvReac Type Severity Reaction Status Date / Time Penicillins Allergy Unknown Verified 03/09/19 08:02 Review of Systems ROS Statement: Those systems with pertinent positive or pertinent negative responses have been documented in the HPI. ROS Other: All systems not noted in ROS Statement are negative. Past Medical History Past Medical History: Cancer, Chest Pain / Angina, Heart Failure, CVA/TIA, Hyperlipidemia, Hypertension, Memory Impairment History of Any Multi-Drug Resistant Organisms: None Reported Past Surgical History: Heart Catheterization With Stent, Pacemaker Additional Past Surgical History / Comment(s): Open Heart surgery Past Anesthesia/Blood Transfusion Reactions: No Reported Reaction Date of Last Stent Placement:: 2014 Type of Cardiac Device: Permanent Pacemaker Device Placement Date:: 2014 Past Psychological History: No Psychological Hx Reported Smoking Status: Never smoker Past Alcohol Use History: None Reported Past Drug Use History: None Reported - Past Family History Father Family Medical History: No Reported History General Exam - General Exam Comments Initial Comments: General: The patient is awake and alert, in no distress Eye: +3 mm pupils are equal, round and reactive to light, extra-ocular movements are intact. No nystagmus. There is normal conjunctiva bilaterally. No signs of icterus. Ears, nose, mouth and throat: There are moist mucous membranes and no oral lesions. Neck: The neck is supple, there is no tenderness or JVD. Cardiovascular: There is a regular rate and rhythm. Murmr, no rub or gallop is appreciated. Respiratory: Respirations are non-labored, breath sounds are equal. Rales noted b/l. Slight expiratory wheeze with diminished lung sounds. Mild rhonchi. Gastrointestinal: Soft, non-distended, non-tender abdomen without masses or organomegaly noted. There is no rebound or guarding present Musculoskeletal: Normal ROM, no tenderness. Strength 5/5. Sensation intact. Radial and DP pulses equal bilaterally 2+. Neurological: A&O x 2, not oriented to date. CN II-XII intact grossly, There are no obvious motor or sensory deficits. Coordination appears grossly intact. Speech is normal. Skin: Skin is warm and dry and no rashes or lesions are noted. b/l LE pitting edema +1. Psychiatric: Cooperative, appropriate mood & affect, normal judgment. Limitations: no limitations Course Vital Signs 03/09/19 03/09/19 08:02 09:14 Temperature 97.9 F Pulse Rate 54 L 49 L Respiratory 18 18 Rate Blood Pressure 141/79 137/64 O2 Sat by Pulse 91 L 93 L Oximetry Medical Decision Making - Medical Decision Making 84-year-old male history of COPD CHF with pacemaker presents emergency department for worsening shortness of breath 1 month acutely 1 week. Patient has rails extremities with diminished lung sounds on physical examination appears short of breath however is in no distress. Patient is slightly hypoxic. There is evidence of pleural effusion on chest x-ray pitting edema and elevation of BNP consistent with CHF exacerbation. With compunding COPD exacerbation. Patient will be admitted for breathing treatments, cardiology evaluation with IV lasix. Patient does not appear to have a pneumonia, no cough, afebrile, without leukocytosis. Discussed case with Dr. solomon who is agreeable to admission speaking with on admitting providers. - Lab Data Result diagrams: 03/09/19 08:00 03/09/19 08:00 Lab Results 03/09/19 03/09/19 03/09/19 Range/Units 08:00 08:00 08:00 WBC 8.9 (3.8-10.6) k/uL RBC 3.42 L (4.30-5.90) m/uL Hgb 11.1 L (13.0-17.5) gm/dL Hct 33.9 L (39.0-53.0) % MCV 99.2 (80.0-100.0) fL MCH 32.6 (25.0-35.0) pg MCHC 32.9 (31.0-37.0) g/dL RDW 15.7 H (11.5-15.5) % Plt Count 122 L (150-450) k/uL Neutrophils % 67 % Lymphocytes % 22 % Monocytes % 7 % Eosinophils % 2 % Basophils % 0 % Neutrophils # 5.9 (1.3-7.7) k/uL Lymphocytes # 1.9 (1.0-4.8) k/uL Monocytes # 0.6 (0-1.0) k/uL Eosinophils # 0.1 (0-0.7) k/uL Basophils # 0.0 (0-0.2) k/uL Macrocytosis Slight PT (9.0-12.0) sec INR (<1.2) APTT (22.0-30.0) sec Sodium 146 H (137-145) mmol/L Potassium 4.4 (3.5-5.1) mmol/L Chloride 111 H (98-107) mmol/L Carbon Dioxide 24 (22-30) mmol/L Anion Gap 11 mmol/L BUN 41 H (9-20) mg/dL Creatinine 1.67 H (0.66-1.25) mg/dL Est GFR (CKD-EPI)AfAm 42 (>60 ml/min/1.73 sqM) Est GFR (CKD-EPI)NonAf 37 (>60 ml/min/1.73 sqM) Glucose 99 (74-99) mg/dL Plasma Lactic Acid Jered 0.9 (0.7-2.0) mmol/L Calcium 9.3 (8.4-10.2) mg/dL Total Bilirubin 0.5 (0.2-1.3) mg/dL AST 25 (17-59) U/L ALT 41 (21-72) U/L Alkaline Phosphatase 116 (38-126) U/L Troponin I (0.000-0.034) ng/mL NT-Pro-B Natriuret Pep pg/mL Total Protein 8.0 (6.3-8.2) g/dL Albumin 3.8 (3.5-5.0) g/dL 03/09/19 03/09/19 03/09/19 Range/Units 08:00 08:00 08:00 WBC (3.8-10.6) k/uL RBC (4.30-5.90) m/uL Hgb (13.0-17.5) gm/dL Hct (39.0-53.0) % MCV (80.0-100.0) fL MCH (25.0-35.0) pg MCHC (31.0-37.0) g/dL RDW (11.5-15.5) % Plt Count (150-450) k/uL Neutrophils % % Lymphocytes % % Monocytes % % Eosinophils % % Basophils % % Neutrophils # (1.3-7.7) k/uL Lymphocytes # (1.0-4.8) k/uL Monocytes # (0-1.0) k/uL Eosinophils # (0-0.7) k/uL Basophils # (0-0.2) k/uL Macrocytosis PT 11.2 (9.0-12.0) sec INR 1.1 (<1.2) APTT 27.1 (22.0-30.0) sec Sodium (137-145) mmol/L Potassium (3.5-5.1) mmol/L Chloride (98-107) mmol/L Carbon Dioxide (22-30) mmol/L Anion Gap mmol/L BUN (9-20) mg/dL Creatinine (0.66-1.25) mg/dL Est GFR (CKD-EPI)AfAm (>60 ml/min/1.73 sqM) Est GFR (CKD-EPI)NonAf (>60 ml/min/1.73 sqM) Glucose (74-99) mg/dL Plasma Lactic Acid Jered (0.7-2.0) mmol/L Calcium (8.4-10.2) mg/dL Total Bilirubin (0.2-1.3) mg/dL AST (17-59) U/L ALT (21-72) U/L Alkaline Phosphatase (38-126) U/L Troponin I 0.021 (0.000-0.034) ng/mL NT-Pro-B Natriuret Pep 1990 pg/mL Total Protein (6.3-8.2) g/dL Albumin (3.5-5.0) g/dL - EKG Data EKG Comments: Ventricular rate 50 bpm QRS duration 98 ms QT/QTC 450/410 ms. This is electronically atrial paced rhythm low voltage QRS. Significant artifact noted otherwise no specific changes. No ST elevation or depression noted. Disposition Clinical Impression: Dyspnea, Hypoxia, CHF exacerbation, COPD exacerbation, Extremity edema Disposition: ADMITTED IP TO THIS HOSP Condition: Stable Is patient prescribed a controlled substance at d/c from ED?: No Referrals: Popeye Hicks MD [Primary Care Provider] - 1-2 days Time of Disposition: 09:29 Decision to Admit Reason: Admit from EC Decision Date: 03/09/19 Decision Time: 09:29
[2019-03-09 08:40] LABS: INR 1.1 (<1.2); Partial Thromboplastin Time 27.1 sec (22.0-30.0); Prothrombin Time 11.2 sec (9.0-12.0)
--- NOTE | 2019-03-09 08:54 | XR ---
EXAMINATION TYPE: XR chest 2V DATE OF EXAM: 03/09/2019 COMPARISON: 01/04/2019 HISTORY: 84-year-old male with difficulty breathing TECHNIQUE: AP and lateral views FINDINGS: Left anterior chest wall AICD generator with right atrial and right ventricular leads. Heart borderli ne enlarged. Median sternotomy wires and post-CABG clips in the mediastinum. Diffuse interstitial den sities, increased from prior with new small effusions and patchy posterior basilar opacity. IMPRESSION: Borderline cardiomegaly with increasing interstitial changes. New small effusions with adjacent atele ctasis and/or consolidation. Correlate for CHF with pulmonary vascular congestion.
[2019-03-09 08:55] LABS: Albumin 3.8 g/dL (3.5-5.0); Calcium 9.3 mg/dL (8.4-10.2); Potassium 4.4 mmol/L (3.5-5.1); Total Bilirubin 0.5 mg/dL (0.2-1.3)
[2019-03-09] MEDS ORDERED: FUROSEMIDE 10 MG/ML 4 ML VIAL IV STA (08:55)
[2019-03-09] MEDS ORDERED: IPRATROPIUM-ALBUTEROL 3 ML NEB INHALATION STA (09:06)
[2019-03-09] MEDS ORDERED: IPRATROPIUM-ALBUTEROL 3 ML NEB INHALATION PRN (09:25)
[2019-03-09] MEDS: IPRATROPIUM-ALBUTEROL 3 ML NEB INHALATION SCH ×3 (12:17→20:32)
[2019-03-09] MEDS ORDERED: NALOXONE 0.4 MG/ML 1 ML VIAL IV PRN (12:35)
[2019-03-09] MEDS ORDERED: ACETAMINOPHEN TAB 325 MG TAB PO PRN (12:35)
[2019-03-09 12:49] LABS: Basophils # (A) 0.1 k/uL (0-0.2); Basophils % (A) 1 %; Eosinophils % (A) 0 %; HCT 34.5 % (39.0-53.0); HGB 11.1 gm/dL (13.0-17.5); Lymphocytes # (A) 0.5 k/uL (1.0-4.8); Lymphocytes % (A) 7 %; MCHC 32.2 g/dL (31.0-37.0); MCV 99.4 fL (80.0-100.0); Macrocytosis Slight; Mean Platelet Volume 7.1; Monocytes # (A) 0.1 k/uL (0-1.0); Monocytes % (A) 2 %; Neutrophils # (A) 6.9 k/uL (1.3-7.7); Neutrophils % (A) 90 %; Platelet Count 112 k/uL (150-450); RBC 3.47 m/uL (4.30-5.90); RDW 15.6 % (11.5-15.5); WBC 7.7 k/uL (3.8-10.6)
--- NOTE | 2019-03-09 13:05 | P.HPIM ---
History of Present Illness H&P Date: 03/09/19 Chief Complaint: Shortness of breath, bright red blood per rectum 84-year-old male with extensive past medical history including dementia, COPD, congestive heart failure, CAD post CABG and stent placement with permanent pacemaker and defibrillator, hypertension, dyslipidemia, history of CVA presents the ED from [facility] in the [facility]. Majority of history is obtained from the daughter and ED note as patient is unable to answer questions effectively. Daughter reports worsening shortness of breath over the past month, recently worsening over the past week. Daughter reports that her father has advanced dementia but is usually able to communicate effectively. The daughter Elisha is the power of java lead engineer. She presents paperwork that states that the patient is DNR/DNI. I did receive a call from the RN soon as the patient came to the telemetry floor that they noticed bright red blood per rectum when attempting to turn the patient over. Patient is currently bradycardic with heart rate in the 40s and 50s. He is saturating mid 90s on 2 L nasal cannula. Blood pressure is otherwise stable. In the ED, CBC showed hemoglobin of 11.1 and platelet count of 122. Coagulation panel was negative. CMP showed sodium of 146, chloride 111, BUN 41, creatinine 1.67. BNP was 1990, chest x-ray showing cardiomegaly with increasing interstitial changes. Troponin was 0.021, EKG showing low voltage QRS and atrial pacemaker. Patient is admitted for COPD and CHF exacerbation with cardiology on consultation. Patient was made nothing by mouth, started on Protonix IV and GI consulted for rectal bleed. Review of Systems Pertinent positives and negatives as discussed in HPI, a complete review of systems was performed and all other systems are negative. Past Medical History Past Medical History: Cancer, Chest Pain / Angina, Heart Failure, CVA/TIA, Hyperlipidemia, Hypertension, Memory Impairment History of Any Multi-Drug Resistant Organisms: None Reported Past Surgical History: Heart Catheterization With Stent, Pacemaker Additional Past Surgical History / Comment(s): Open Heart surgery Past Anesthesia/Blood Transfusion Reactions: No Reported Reaction Date of Last Stent Placement:: 2014 Type of Cardiac Device: Permanent Pacemaker Device Placement Date:: 2014 Past Psychological History: No Psychological Hx Reported Smoking Status: Never smoker Past Alcohol Use History: None Reported Past Drug Use History: None Reported - Past Family History Father Family Medical History: No Reported History Medications and Allergies Home Medications Medication Instructions Recorded Confirmed Type Acetaminophen [Tylenol] 500 - 1,000 mg PO BID PRN 01/04/19 03/09/19 History Albuterol Inhaler [Ventolin Hfa 1 - 2 puff INHALATION RT-Q4H PRN 01/04/19 03/09/19 History Inhaler] Atenolol [Tenormin] 50 mg PO BID@0800,199901/04/19 03/09/19 History Atorvastatin [Lipitor] 20 mg PO HS@199901/04/19 03/09/19 History Cholecalciferol (Vitamin D3) 2,000 unit PO DAILY@0800 01/04/19 03/09/19 History [Vitamin D3] Clopidogrel Bisulfate [Plavix] 75 mg PO DAILY@0800 01/04/19 03/09/19 History Enalapril Maleate [Vasotec] 20 mg PO BID@0800,199901/04/19 03/09/19 History Folic Acid 0.4 mg PO DAILY@0800 01/04/19 03/09/19 History Guaifenesin/Dextromethorphan 2.5 - 5 ml PO Q4-6H PRN 01/04/19 03/09/19 History [guaiFENesin DM] Loratadine 10 mg PO DAILY@0800 01/04/19 03/09/19 History Melatonin 10 mg PO HS@199901/04/19 03/09/19 History Mirtazapine 30 mg PO HS@199901/04/19 03/09/19 History Doxazosin [Cardura] 4 mg PO DAILY@0800 03/09/19 03/09/19 History Ipratropium-Albuterol Nebulize 3 ml INHALATION RT-DAILY PRN 03/09/19 03/09/19 History [Duoneb 0.5 mg-3 mg/3 ml Soln] Ipratropium-Albuterol Nebulize 3 ml INHALATION RT-QID 03/09/19 03/09/19 History [Duoneb 0.5 mg-3 mg/3 ml Soln] amLODIPine [Norvasc] 10 mg PO DAILY@0700 03/09/19 03/09/19 History Allergies Allergy/AdvReac Type Severity Reaction Status Date / Time Penicillins Allergy Unknown Verified 03/09/19 09:50 Physical Exam Vitals: Vital Signs Temp Pulse Resp BP Pulse Ox 03/09/19 12:23 52 L 03/09/19 12:18 52 L 03/09/19 10:17 51 L 18 122/66 93 L 03/09/19 09:43 48 L 03/09/19 09:31 49 L 03/09/19 09:14 49 L 18 137/64 93 L 03/09/19 08:02 97.9 F 54 L 18 141/79 91 L Intake and Output 03/08/19 03/09/19 03/09/19 22:59 06:59 14:59 Other: Weight 90.718 kg General: [non toxic], [no distress on 2 L nasal cannula unable to effectively communicate], [appears at stated age] Derm: [warm], [dry] Head: [atraumatic], [normocephalic], [symmetric] Eyes: [EOMI], [no lid lag], [anicteric sclera] Mouth: [no lip lesion], [mucus membranes moist] Cardiovascular: [S1S2 reg], [bradycardia], [positive DP pulse bilateral], Lungs: [Diffuse expiratory wheezing bilaterally], [no rhonchi, no rales] , [no a ccessory muscle use] Abdominal: [soft], [ nontender to palpation], [no guarding], [no appreciable or ganomegaly] Ext: [no gross muscle atrophy], [1+ pitting lower extremity bilateral edema], [no contractures] Neuro: [Unable to determine] Psych: [Unable to determine] Results CBC & Chem 7: 03/09/19 12:34 03/09/19 08:00 Labs: Abnormal Lab Results - Last 24 Hours (Table) 03/09/19 03/09/19 Range/Units 08:00 08:00 RBC 3.42 L (4.30-5.90) m/uL Hgb 11.1 L (13.0-17.5) gm/dL Hct 33.9 L (39.0-53.0) % RDW 15.7 H (11.5-15.5) % Plt Count 122 L (150-450) k/uL Sodium 146 H (137-145) mmol/L Chloride 111 H (98-107) mmol/L BUN 41 H (9-20) mg/dL Creatinine 1.67 H (0.66-1.25) mg/dL Assessment and Plan Assessment: Assessment and plan Acute on chronic CHF exacerbation COPD exacerbation Bright red blood per rectum Hypothermia Acute kidney injury CAD post CABG and stent placement with permanent pacemaker and defibrillator, dyslipidemia and history of CVA Hypertension BNP 1989 with chest x-ray showing vascular congestion. Plans: Start diuresis with Lasix 40 mg IV daily. Strict intake and output. Daily weights. Follow-up echocardiogram. Follow-up cardiology consultation. Trend troponin/EKG to rule out ACS. Patient with diffuse wheezing on physical exam. Plans: DuoNeb scheduled and as needed for shortness of breath and wheezing. Start prednisone 40 mg by mouth daily. O2 per NC to maintain O2 saturation greater than 92%. Add formoterol neb twice a day. Hemoglobin 11.1. Bright red blood per rectum seen by RN. Plans: CBC every 6 hours. Start Protonix 40 mg IV twice a day. Nothing by mouth. Follow GI consultation. Rectal temperature per RN was 92. No clear signs of infection or sepsis at this time. Patient is DNR/DNI. Plans: Filomena Sanders. Follow blood cultures. Creatinine 1.67. Likely due to dehydration. Possible component of CKD. Plans: Avoid nephrotoxins. Avoid IVF due to fluid overload state. Repeat BMP tomorrow morning. Plans: Hold aspirin and Plavix. Resume beta claudia. BP 122/66. Plans: Restart atenolol and amlodipine. Monitor vitals adjust medications as necessary. DVT prophylaxis: [SCD] Discussed with: [Daughter] Anticipated discharge: [2-3 days] Anticipated discharge place: [[facility]] A total of [45] minutes was spent on the care of this complex patient more than 50% of the time was spent in counseling and care coordination. Patient's daughter Elisha is the power of java lead engineer. She presents paperwork for DNR/DNI of this patient. Prognosis is extremely guarded at this time. Patient is admitted for anticipated greater than 48 hour admission for CHF/COPD exacerbation and new onset bright red blood per rectum.
[2019-03-09 14:06] LABS: Glucose,Whole Blood 149 mg/dL (75-99)
[2019-03-09] MEDS: PANTOPRAZOLE 40 MG/10 ML VIAL IVP SCH ×2 (17:11→20:01)
[2019-03-09 18:25] LABS: HCT 34.3 % (39.0-53.0); HGB 11.1 gm/dL (13.0-17.5); MCHC 32.4 g/dL (31.0-37.0); MCV 98.7 fL (80.0-100.0); Macrocytosis Slight; Mean Platelet Volume 6.5; Platelet Count 118 k/uL (150-450); RBC 3.47 m/uL (4.30-5.90); RDW 15.8 % (11.5-15.5); WBC 7.2 k/uL (3.8-10.6)
--- NOTE | 2019-03-09 18:41 | CT ---
EXAMINATION TYPE: CT brain wo con DATE OF EXAM: 03/09/2019 COMPARISON: Prior CT unavailable, correlation CT angiogram same date. HISTORY: Mental status changes. CT DLP: 1486 mGycm Automated exposure control for dose reduction was used. Helical acquisition through the brain. FINDINGS: There are dense cerebral vascular calcifications present. Cortical atrophy is present. There is encep halomalacia present involving the basal ganglia on the right, internal capsule with ex vacuo phenomen on of the frontal horn of the right lateral ventricle. Periventricular white matter shows patchy low attenuation. No hemorrhage or hydrocephalus. There is some inflammatory change in the mastoid air suhail ls on the right. Orbits show symmetric appearance. IMPRESSION: CHRONIC CEREBROVASCULAR ACCIDENT, AGE-RELATED CHANGES OF ATROPHY AND CHRONIC SMALL VESSEL ISCHEMIA
[2019-03-09 18:43] LABS: Calcium 9.5 mg/dL (8.4-10.2); Potassium 4.7 mmol/L (3.5-5.1)
--- NOTE | 2019-03-09 18:49 | CT ---
CT angiogram of the brain HISTORY: Altered mental status Helical acquisition through the brain during dynamic administration 65 cc Isovue 370. Three-dimension al reconstructions performed on an alternate workstation. Automated exposure control for dose reducti on, DLP 751.[address] brain same date Extensive cerebral vascular calcifications are present. There is no evident hemorrhage or aneurysm. N o embolus or dissection. IMPRESSION: Cerebral vascular disease.
[2019-03-09] MEDS: MIRTAZAPINE 15 MG TAB PO SCH (19:54)
[2019-03-09] MEDS: ATENOLOL 50 MG TAB PO SCH (19:55)
[2019-03-09] MEDS: MELATONIN 5 MG TABLET PO SCH (19:55)
[2019-03-09] MEDS: ATORVASTATIN 20 MG TAB PO SCH (19:55)
[2019-03-09] MEDS ORDERED: LISINOPRIL 20 MG TAB PO SCH (20:00)
[2019-03-09] MEDS: FORMOTEROL FUMARATE 20 MCG/2 ML NEBU INHALATION SCH (20:32)
[2019-03-09] MEDS ORDERED: HALOPERIDOL LACTATE 5 MG/ML 1 ML VIAL IM PRN (21:38)
[2019-03-10 00:06] LABS: HGB 10.6 gm/dL (13.0-17.5); MCH 32.5 pg (25.0-35.0); MCHC 33.3 g/dL (31.0-37.0); MCV 97.5 fL (80.0-100.0); Macrocytosis Slight; Mean Platelet Volume 6.7; Platelet Count 126 k/uL (150-450); RBC 3.28 m/uL (4.30-5.90); WBC 6.6 k/uL (3.8-10.6)
[2019-03-10 06:11] LABS: HCT 32.1 % (39.0-53.0); HGB 10.6 gm/dL (13.0-17.5); MCH 32.6 pg (25.0-35.0); MCHC 33.1 g/dL (31.0-37.0); MCV 98.5 fL (80.0-100.0); Macrocytosis Slight; Mean Platelet Volume 6.4; Platelet Count 128 k/uL (150-450); RBC 3.26 m/uL (4.30-5.90); RDW 15.8 % (11.5-15.5); WBC 9.1 k/uL (3.8-10.6)
[2019-03-10 06:24] LABS: Calcium 9.5 mg/dL (8.4-10.2); Potassium 4.6 mmol/L (3.5-5.1)
[2019-03-10] MEDS: amLODIPine 10 MG TAB PO SCH ×2 (06:47→08:59)
[2019-03-10] MEDS: FORMOTEROL FUMARATE 20 MCG/2 ML NEBU INHALATION SCH ×2 (07:11→21:32)
[2019-03-10] MEDS: IPRATROPIUM-ALBUTEROL 3 ML NEB INHALATION SCH ×4 (07:11→21:32)
[2019-03-10] MEDS ORDERED: CLOPIDOGREL 75 MG TAB PO SCH (08:00)
--- NOTE | 2019-03-10 08:50 | P.CRDCN ---
History of Present Illness Consult date: 03/10/19 Requesting physician: George Restrepo Consult reason: congestive heart failure Chief complaint: Shortness of breath History of present illness: This is an 84 year old gentleman, history of dementia, history was obtained mainly from the medical record as the patient is quite confused this m orning. He has a history of coronary artery disease with prior bypass surgery, prior stent placement, history of pacemaker with possible defibrillator, hypertension, hyperlipidemia, history of CVA, his daughter Elisha is the power of trial attorney. Patient was brought to the hospital apparently because of symptoms of progressively worsening shortness of breath. His mentation is also noted to be much more worse than his usual. While here in the hospital, the patient was admitted to the cardiac unit where he was noticed to have a bright red blood per rectum when they were rolling the patient over in bed. His chest x-ray on presentation here showed borderline cardiomegaly with increasing interstitial changes. New small effusions with adjacent atelectasis and/or consolidation. Correlate for CHF with pulmonary vascular congestion. EKG on presentation here shows a normal sinus rhythm with no acute changes. CAT scan of the brain shows chronic CVA, age-related changes of atrophy and chronic small vessel ischemia. CTA of the brain showed cerebral vascular disease. Blood pressure on arrival here 140/70 with a heart rate in the 50s, 91% on room air. I pressure this morning 156/50 with a heart rate in the 60s, 95% on 4 L of oxygen. He is afebrile. White blood cell count is normal, hemoglobin 10.6, platelet count 128. Sodium 146, potassium 4.6, chloride 108, BUN is 45, creatinine 1.9 this morning, 1.6 on admission. Troponins 0.021, 0.014, 0.019. BNP level in 1989. TSH 2.2, cortisol level16. At the time of my examination this morning, the patient is quite confused, he is unsure of where he is at, and he is pointing to things in the room that do not exist. Past Medical History Past Medical History: Cancer, Chest Pain / Angina, Heart Failure, CVA/TIA, Hyperlipidemia, Hypertension, Memory Impairment History of Any Multi-Drug Resistant Organisms: None Reported Past Surgical History: Heart Catheterization With Stent, Pacemaker Additional Past Surgical History / Comment(s): Open Heart surgery Past Anesthesia/Blood Transfusion Reactions: No Reported Reaction Date of Last Stent Placement:: 2014 Type of Cardiac Device: Permanent Pacemaker Device Placement Date:: 2014 Past Psychological History: No Psychological Hx Reported Smoking Status: Never smoker Past Alcohol Use History: None Reported Past Drug Use History: None Reported - Past Family History Father Family Medical History: No Reported History Medications and Allergies Home Medications Medication Instructions Recorded Confirmed Type Acetaminophen [Tylenol] 500 - 1,000 mg PO BID PRN 01/04/19 03/09/19 History Albuterol Inhaler [Ventolin Hfa 1 - 2 puff INHALATION RT-Q4H PRN 01/04/19 History Inhaler] Atenolol [Tenormin] 50 mg PO BID@08,199901/04/19 03/09/19 History Atorvastatin [Lipitor] 20 mg PO HS@199901/04/19 03/09/19 History Cholecalciferol (Vitamin D3) 2,000 unit PO DAILY@0801/04/19 03/09/19 History [Vitamin D3] Clopidogrel Bisulfate [Plavix] 75 mg PO DAILY@0801/04/19 03/09/19 History Enalapril Maleate [Vasotec] 20 mg PO BID@08,199901/04/19 03/09/19 History Folic Acid 0.4 mg PO DAILY@0801/04/19 03/09/19 History Guaifenesin/Dextromethorphan 2.5 - 5 ml PO Q4-6H PRN 01/04/19 03/09/19 History [guaiFENesin DM] Loratadine 10 mg PO DAILY@0801/04/19 03/09/19 History Melatonin 10 mg PO HS@199901/04/19 03/09/19 History Mirtazapine 30 mg PO HS@199901/04/19 03/09/19 History Doxazosin [Cardura] 4 mg PO DAILY@79903/09/19 03/09/19 History Ipratropium-Albuterol Nebulize 3 ml INHALATION RT-DAILY PRN 03/09/19 03/09/19 History [Duoneb 0.5 mg-3 mg/3 ml Soln] Ipratropium-Albuterol Nebulize 3 ml INHALATION RT-QID 03/09/19 03/09/19 History [Duoneb 0.5 mg-3 mg/3 ml Soln] amLODIPine [Norvasc] 10 mg PO DAILY@0700 03/09/19 03/09/19 History Allergies Allergy/AdvReac Type Severity Reaction Status Date / Time Penicillins Allergy Unknown Verified 03/09/19 09:50 Physical Exam Vitals: Vital Signs Temp Pulse Pulse Resp BP BP Pulse Ox 03/10/19 08:00 98.0 F 62 16 156/54 95 03/10/19 04:00 98.2 F 64 18 152/68 94 L 03/09/19 23:26 98.2 F 65 18 165/72 95 03/09/19 20:52 64 03/09/19 20:33 68 03/09/19 20:00 98 F 69 18 181/77 94 L 03/09/19 16:50 54 L 03/09/19 16:40 58 L 98 03/09/19 16:05 14 92 L 03/09/19 16:00 94.8 F L 50 L 14 137/64 87 L 03/09/19 12:23 52 L 03/09/19 12:18 52 L 03/09/19 12:00 92.1 F L 53 L 18 175/85 93 L 03/09/19 10:17 51 L 18 122/66 93 L 03/09/19 09:43 48 L 03/09/19 09:31 49 L 03/09/19 09:14 49 L 18 137/64 93 L Intake and Output 03/09/19 03/10/19 03/10/19 22:59 06:59 14:59 Intake Total 100 Balance 100 Intake: Oral 100 Other: Voiding Method Diaper Incontinent # Voids 4 1 1 Weight 99 kg PHYSICAL EXAMINATION: GENERAL: 84 stroke gentleman in no acute distress at the time of my examination HEENT: Head is atraumatic, normocephalic. Pupils equal, round. Sclera anicteric. Conjunctiva are clear. Mucous membranes of the mouth are moist. N song is supple. There is elevated jugular venous pressure. No carotid bruit is heard. HEART EXAMINATION: Heart S1 and S2 with soft systolic murmur is heard CHEST EXAMINATION: On's reveal diminished air entry to the bases bilaterally ABDOMEN: [ Soft, nontender. Bowel sounds are heard. No organomegaly noted]. EXTREMITIES:[ 2+ peripheral pulses with 1-2+ evidence of peripheral edema and no calf tenderness noted]. NEUROLOGIC [patient is awake, alert, confused Results 03/10/19 05:31 03/10/19 05:31 Cardiac Enzymes 03/09/19 03/09/19 03/09/19 Range/Units 08:00 08:00 17:49 AST 25 (17-59) U/L Troponin I 0.021 0.014 (0.000-0.034) ng/mL 03/09/19 Range/Units 23:52 AST (17-59) U/L Troponin I 0.019 (0.000-0.034) ng/mL Coagulation 03/09/19 Range/Units 08:00 PT 11.2 (9.0-12.0) sec APTT 27.1 (22.0-30.0) sec CBC 03/09/19 03/09/19 03/09/19 Range/Units 12:34 17:49 23:52 WBC 7.7 7.2 6.6 (3.8-10.6) k/uL RBC 3.47 L 3.47 L 3.28 L (4.30-5.90) m/uL Hgb 11.1 L 11.1 L 10.6 L (13.0-17.5) gm/dL Hct 34.5 L 34.3 L 32.0 L (39.0-53.0) % Plt Count 112 L 118 L 126 L (150-450) k/uL 03/10/19 Range/Units 05:31 WBC 9.1 (3.8-10.6) k/uL RBC 3.26 L (4.30-5.90) m/uL Hgb 10.6 L (13.0-17.5) gm/dL Hct 32.1 L (39.0-53.0) % Plt Count 128 L (150-450) k/uL Comprehensive Metabolic Panel 03/09/19 03/09/19 03/10/19 Range/Units 08:00 17:49 05:31 Sodium 146 H 146 H 146 H (137-145) mmol/L Potassium 4.4 4.7 4.6 (3.5-5.1) mmol/L Chloride 111 H 109 H 108 H (98-107) mmol/L Carbon Dioxide 24 25 25 (22-30) mmol/L BUN 41 H 41 H 45 H (9-20) mg/dL Creatinine 1.67 H 1.72 H 1.98 H (0.66-1.25) mg/dL Glucose 99 155 H 116 H (74-99) mg/dL Calcium 9.3 9.5 9.5 (8.4-10.2) mg/dL AST 25 (17-59) U/L ALT 41 (21-72) U/L Alkaline Phosphatase 116 (38-126) U/L Total Protein 8.0 (6.3-8.2) g/dL Albumin 3.8 (3.5-5.0) g/dL Current Medications Generic Name Dose Route Start Last Admin Trade Name Freq PRN Reason Stop Dose Admin Acetaminophen 650 mg 03/09/19 12:35 Tylenol Tab PO Q6HR PRN Mild Pain or Fever > 100.5 Albuterol/Ipratropium 3 ml 03/09/19 09:25 Duoneb 0.5 Mg-3 Mg/3 Ml Soln INHALATION RT-Q4H PRN Shortness Of Breath Or Wheezing Albuterol/Ipratropium 3 ml 03/09/19 12:00 03/10/19 07:11 Duoneb 0.5 Mg-3 Mg/3 Ml Soln INHALATION Not Given RT-QID [facility] Amlodipine Besylate 10 mg 03/10/19 07:00 Norvasc PO DAILY@0700 [facility] Atenolol 50 mg 03/09/19 20:00 03/09/19 19:55 Tenormin PO 50 mg BID@ [facility] Administration Atorvastatin Calcium 20 mg 03/09/19 20:00 03/09/19 19:55 Lipitor PO 20 mg HS@1999 [facility] Administration Doxazosin Mesylate 4 mg 03/10/19 08:00 Cardura PO DAILY@0800 [facility] Formoterol Fumarate 20 mcg 03/09/19 20:00 03/10/19 07:11 Perforomist INHALATION Not Given RT-BID [facility] Furosemide 40 mg 03/10/19 09:00 Lasix IV DAILY [facility] Haloperidol Lactate 1 mg 03/09/19 21:38 Haldol IM Q4HR PRN Agitation or Acute Psychosis Melatonin 10 mg 03/09/19 20:00 03/09/19 19:55 Melatonin PO 10 mg HS@2000 [facility] Administration Mirtazapine 30 mg 03/09/19 20:00 03/09/19 19:54 Remeron PO 30 mg HS@2000 [facility] Administration Naloxone HCl 0.2 mg 03/09/19 12:35 Narcan IV Q2M PRN Opioid Reversal Pantoprazole Sodium 40 mg 03/09/19 12:45 03/09/19 20:01 Protonix IVP 40 mg BID [facility] Administration Prednisone 40 mg 03/10/19 09:00 PO DAILY [facility] Intake and Output 03/09/19 03/10/19 03/10/19 22:59 06:59 14:59 Intake Total 100 Balance 100 Intake: Oral 100 Other: Voiding Method Diaper Incontinent # Voids 4 1 1 Weight 99 kg 03/10/19 05:31 03/10/19 05:31 EKG Interpretations (text) EKG shows normal sinus rhythm with nonspecific changes in the lateral leads. Assessment and Plan Plan: Assessment and plan #1 congestive heart failure, LV function unknown #2 bright red bleeding per rectum, possible acute GI bleed. #3 coronary artery disease with prior bypass surgery and stent placements exact details unavailable #4 acute on chronic kidney injury #5 history of a pacemaker/defibrillator #6 hypertension #7 hyperlipidemia #8 dementia with a worsening in mentation Plan We will obtain an echocardiogram with Doppler study. Aspirin and Plavix currently on hold. Continue current dose of IV Lasix monitoring renal function closely. Patient is currently not on an DENVER inhibitor because of the abnormal r enal function. He is on atenolol and Norvasc, we will add a small dose of hydralazine and nitrates. Further recommendations to follow. DNP note has been reviewed, I agree with a documented findings and plan of care. Patient was seen and examined.
[2019-03-10] MEDS: predniSONE 20 MG TAB PO SCH (08:59)
[2019-03-10] MEDS: ATENOLOL 50 MG TAB PO SCH ×2 (08:59→20:12)
[2019-03-10] MEDS: DOXAZOSIN 4 MG TAB PO SCH (08:59)
[2019-03-10] MEDS: ISOSORBIDE MONONITRATE ER 30 MG TAB.ER.24H PO SCH (08:59)
[2019-03-10] MEDS: hydrALAZINE HCL 25 MG TAB PO SCH ×2 (08:59→20:12)
[2019-03-10] MEDS: FUROSEMIDE 10 MG/ML 4 ML VIAL IV SCH (09:01)
[2019-03-10] MEDS: PANTOPRAZOLE 40 MG/10 ML VIAL IVP SCH ×2 (09:01→20:12)
--- NOTE | 2019-03-10 09:16 | P.PN ---
Subjective Progress Note Date: 03/10/19 Principal diagnosis: CHF exacerbation, rectal bleed, encephalopathy, hypothermia Patient was seen and examined. No acute events overnight. He is pleasantly confused this morning but more awake. Patient thinks that the current president is Bucio and this is 1983. He has no complaints. He denies any chest pain, shortness of breath or palpitations. Objective - Vital Signs Vital signs: Vital Signs Temp 98.0 F 03/10/19 08:00 Pulse 62 03/10/19 08:00 Resp 16 03/10/19 08:00 BP 156/54 03/10/19 08:00 Pulse Ox 95 03/10/19 08:00 Intake & Output 03/09/19 03/10/19 03/10/19 18:59 06:59 18:59 Intake Total 100 Balance 100 Weight 90.718 kg 99 kg Intake: Oral 100 Other: Voiding Method Diaper Incontinent # Voids 4 1 1 - Exam General: [non toxic], [no distress on 4 L nasal cannula pleasantly confused], [appears at stated age] Derm: [warm], [dry] Head: [atraumatic], [normocephalic], [symmetric] Eyes: [EOMI], [no lid lag], [anicteric sclera] Mouth: [no lip lesion], [mucus membranes moist] Cardiovascular: [S1S2 reg], [bradycardia], [positive DP pulse bilateral], Lungs: [Diffuse expiratory wheezing bilaterally], [no rhonchi, no rales] , [no accessory muscle use] Abdominal: [soft], [ nontender to palpation], [no guarding], [no appreciable organomegaly] Ext: [no gross muscle atrophy], [1+ pitting lower extremity bilateral edema], [no contractures] Neuro: [No focal deficits] Psych: [Alert and oriented 0 suspect baseline] - Labs CBC & Chem 7: 03/10/19 05:31 03/10/19 05:31 Labs: Abnormal Lab Results - Last 24 Hours (Table) 03/09/19 03/09/19 03/09/19 Range/Units 12:34 14:04 17:49 RBC 3.47 L 3.47 L (4.30-5.90) m/uL Hgb 11.1 L 11.1 L (13.0-17.5) gm/dL Hct 34.5 L 34.3 L (39.0-53.0) % RDW 15.6 H 15.8 H (11.5-15.5) % Plt Count 112 L 118 L (150-450) k/uL Lymphocytes # 0.5 L (1.0-4.8) k/uL Sodium (137-145) mmol/L Chloride (98-107) mmol/L BUN (9-20) mg/dL Creatinine (0.66-1.25) mg/dL Glucose (74-99) mg/dL POC Glucose (mg/dL) 149 H (75-99) mg/dL Creatine Kinase (55-170) U/L 03/09/19 03/09/19 03/10/19 Range/Units 17:49 23:52 05:31 RBC 3.28 L 3.26 L (4.30-5.90) m/uL Hgb 10.6 L 10.6 L (13.0-17.5) gm/dL Hct 32.0 L 32.1 L (39.0-53.0) % RDW 16.0 H 15.8 H (11.5-15.5) % Plt Count 126 L 128 L (150-450) k/uL Lymphocytes # (1.0-4.8) k/uL Sodium 146 H (137-145) mmol/L Chloride 109 H (98-107) mmol/L BUN 41 H (9-20) mg/dL Creatinine 1.72 H (0.66-1.25) mg/dL Glucose 155 H (74-99) mg/dL POC Glucose (mg/dL) (75-99) mg/dL Creatine Kinase 33 L (55-170) U/L 03/10/19 Range/Units 05:31 RBC (4.30-5.90) m/uL Hgb (13.0-17.5) gm/dL Hct (39.0-53.0) % RDW (11.5-15.5) % Plt Count (150-450) k/uL Lymphocytes # (1.0-4.8) k/uL Sodium 146 H (137-145) mmol/L Chloride 108 H (98-107) mmol/L BUN 45 H (9-20) mg/dL Creatinine 1.98 H (0.66-1.25) mg/dL Glucose 116 H (74-99) mg/dL POC Glucose (mg/dL) (75-99) mg/dL Creatine Kinase (55-170) U/L Assessment and Plan Assessment: Assessment and plan Acute metabolic encephalopathy with hypothermia Acute on chronic CHF exacerbation COPD exacerbation Bright red blood per rectum Acute kidney injury CAD post CABG and stent placement with permanent pacemaker and defibrillator, dyslipidemia and history of CVA Hypertension His mentation has improved this morning. Rectal temperature per RN was 92 yesterday, was on Filomena Hugger, improved to 98F today. No clear signs of infection or sepsis at this time. Patient is DNR/DNI. CT brain shows chronic cerebrovascular accident, age-related changes of atrophy and chronic small vessel ischemia. CTA head and neck shows cerebrovascular disease. TSH is within normal limits. Cortisol is within normal limits. Plans: Filomena Hugger as needed. Temperatures currently within normal limits we will continue to monito r. Myxedema coma ruled out. Adrenal crisis ruled out. No CVA. Follow blood cultures. BNP 1989 with chest x-ray showing vascular congestion. Troponin 0.021, 0.014, 0.019, ACS ruled out. Plans: Start diuresis with Lasix 40 mg IV daily. Continue beta claudia. Hold DENVER inhibitor due to RIAN. Strict intake and output. Daily weights. Follow-up echocardiogram. Follow-up cardiology consultation. Patient with diffuse wheezing on physical exam. Plans: DuoNeb scheduled and as needed for shortness of breath and wheezing. Start prednisone 40 mg by mouth daily. O2 per NC to maintain O2 saturation greater than 92%. Add formoterol neb twice a day. Hemoglobin 11.1 2, 10.62. Bright red blood per rectum seen by RN. Plans: CBC every 6 hours. Start Protonix 40 mg IV twice a day. Nothing by mouth. Follow GI consultation. Creatinine 1.98. Likely due to dehydration. Possible component of CKD. Plans: Avoid nephrotoxins. Avoid IVF due to fluid overload state. Repeat BMP tomorrow morning. Hold DENVER inhibitor. Plans: Hold aspirin and Plavix. Resume beta claudia. BP 156/54. Plans: Restart atenolol and amlodipine. Cardiology added Imdur and hydralazine. Monitor vitals adjust medications as necessary. [Patient admitted for CHF/COPD exacerbation, currently on IV diuresis. Also admitted for acute encephalopathy found to be hypothermic, mentation improving. Found to have bright red blood per rectum, GI software security consultant, hemoglobin maintaining stable. Patient is pending clinical improvement. Prognosis is guarded.]
--- NOTE | 2019-03-10 10:54 | ECHOF ---
Referral Reason:SOB MEASUREMENTS -------- HEIGHT: 162.6 cm WEIGHT: 97.1 kg BP: 152/68 IVSd: 0.8 cm (0.6 - 1.1) LVIDd: 4.5 cm (3.9 - 5.3) LVPWd: 0.9 cm (0.6 - 1.1) IVSs: 1.3 cm LVIDs: 3.3 cm LVPWs: 1.0 cm LAESV Index (A-L): 35.01 ml/m MV E Lenin: 0.82 m/s MV DecT: 99 ms MV A Lenin: 0.82 m/s MV E/A Ratio: 0.99 RAP: 5.00 mmHg RVSP: 36.35 mmHg FINDINGS -------- Sinus rhythm. This was a technically difficult study with suboptimal views. This was a techncally difficult study with suboptimal views, , Lumason utilized for enhancement of im ages. The left ventricular size is normal. Left ventricular wall thickness is normal. Overall left vent ricular systolic function is mild-moderately impaired with, an EF between 40 - 45 %. Inferiorlatera l Hypokinesis The right ventricle is normal in size. The left atrium is mildly dilated. LA is midly dilated 29-33ml/m2. The right atrial size is normal. 5.0mg OF Lumason UTLIZED: 2 OR MORE WALL SEGMENTS NOT VISUALIZED. The aortic valve was not well visualized. Mild mitral annular calcification present. Mild tricuspid regurgitation present. There is mild pulmonary hypertension. The right ventricular systolic pressure, as measured by Doppler, is 36.35mmHg. The pulmonic valve was not well visualized. The aortic root size is normal. Echo free space represents a pericardial fat pad. CONCLUSIONS -------- 1. Sinus rhythm. 2. This was a technically difficult study with suboptimal views. 3. This was a techncally difficult study with suboptimal views, , Lumason utilized for enhancement of images. 4. The left ventricular size is normal. 5. Left ventricular wall thickness is normal. 6. Overall left ventricular systolic function is mild-moderately impaired with, an EF between 40 - 45 %. 7. Inferiorlateral Hypokinesis 8. The right ventricle is normal in size. 9. The left atrium is mildly dilated. 10. LA is midly dilated 29-33ml/m2. 11. The right atrial size is normal. 12. 5.0mg OF Lumason UTLIZED: 2 OR MORE WALL SEGMENTS NOT VISUALIZED. 13. The aortic valve was not well visualized. 14. Mild mitral annular calcification present. 15. Mild tricuspid regurgitation present. 16. There is mild pulmonary hypertension. 17. The right ventricular systolic pressure, as measured by Doppler, is 36.35mmHg. 18. The pulmonic valve was not well visualized. 19. The aortic root size is normal. 20. Echo free space represents a pericardial fat pad. PLISSE MACHINE OPERATOR: Negar uGerrero RDCS
--- NOTE | 2019-03-10 13:34 | CDI ---
Documentation Clarification Form Date: 03/10/2019 1:26:51 PM From: Karlie Brian RN, CCDS Admit Date: 03/09/2019 9:25:00 AM Patient Name: Carlyle Youssef Visit Number: [id number] ATTENTION: The Clinical Documentation Specialists (CDI) and [facility] Coding Staff appreciate your assistance in clarifying documentation. Please respond to the clarification below the line at the bottom and electronically sign. The CDI & [facility] Coding staff will review the response and follow-up if needed. Please note: Queries are made part of the Legal Health Record. If you have any questions, please contact the author of this message via ITS. Dr. Sierra Garsia Patient was admitted with RIAN and CHF exacerbation has documented "chronic renal insufficiency" that requires further clarification. History/Risk Factors: CHF, CVA, HTN Clinical Indicators: Current BUN: 41/42 CR: 1.67/1.72/1.98 GFR: 37/35/30 01/07/19 Patients Baseline BUN/CR/GFR: 56/1.79/34 Treatment: IVF @ 20 cc/hr Lasix 40 mg IVP QD Apresoline 25 mg PO BID Imdur 30 mg PO QD Cardura 4 mg PO QD In order to capture the severity of condition, please clarify if the condition signifies: CKD Stage 1 (GFR > 90) CKD Stage 2 (GFR 60-89) CKD Stage 3 (GFR 30-59) CKD Stage 4 (GFR 15-29) CKD Stage 5 (GFR <15) ESRD Other, please specify Unable to determine (Last Revision: July 2017) ckd stage 3 MTDD
[2019-03-10 13:59] VITALS: BMI 31.3
[2019-03-10] MEDS: MIRTAZAPINE 15 MG TAB PO SCH (20:12)
[2019-03-10] MEDS: MELATONIN 5 MG TABLET PO SCH (20:12)
[2019-03-10] MEDS: ATORVASTATIN 20 MG TAB PO SCH (20:12)
[2019-03-10] MEDS: HYDROCORTISONE 2.5% RECTAL CREAM 30 GM TUBE RECTAL SCH (21:04)
[2019-03-11 05:31] LABS: HCT 36.9 % (39.0-53.0); HGB 12.3 gm/dL (13.0-17.5); MCH 32.9 pg (25.0-35.0); MCHC 33.4 g/dL (31.0-37.0); MCV 98.4 fL (80.0-100.0); Macrocytosis Slight; Mean Platelet Volume 6.4; Platelet Count 107 k/uL (150-450); RBC 3.75 m/uL (4.30-5.90); RDW 15.8 % (11.5-15.5); WBC 9.4 k/uL (3.8-10.6)
[2019-03-11] MEDS: amLODIPine 10 MG TAB PO SCH (06:08)
[2019-03-11] MEDS: FORMOTEROL FUMARATE 20 MCG/2 ML NEBU INHALATION SCH ×2 (07:07→20:27)
[2019-03-11] MEDS: IPRATROPIUM-ALBUTEROL 3 ML NEB INHALATION SCH ×4 (07:07→20:27)
--- NOTE | 2019-03-11 08:48 | P.CONS ---
History of Present Illness - Reason for Consult Consult date: 03/10/19 GI bleed Requesting physician: Sierra Garsia - Chief Complaint Shortness of breath - History of Present Illness 84-year-old male with multiple medical comorbidities including coronary artery disease, hypertension, dyslipidemia, prior CVA, congestive heart failure, COPD and dementia who presented for worsening shortness of breath. Of note patient is extremely confused at baseline and the majority of the history has been taken from review of the medical record and discussion with the medical team. Currently the patient is being evaluated by the cardiology team as treatment for underlying COPD as suspected exacerbation of his congestive heart failure. The patient did have episodes of some minimal bright red blood noted in the rectal area and the GI team was consult for further evaluation. Since that time no further rectal bleeding has been noted. Hemoglobin has remained stable currently at 10.6. A known history of prior endoscopy or if the patient has had a complicated GI bleeding in past. Review of Systems ROS unobtainable: due to mental status Past Medical History Past Medical History: Cancer, Chest Pain / Angina, Heart Failure, CVA/TIA, Hyperlipidemia, Hypertension, Memory Impairment History of Any Multi-Drug Resistant Organisms: None Reported Past Surgical History: Heart Catheterization With Stent, Pacemaker Additional Past Surgical History / Comment(s): Open Heart surgery Past Anesthesia/Blood Transfusion Reactions: No Reported Reaction Date of Last Stent Placement:: 2014 Type of Cardiac Device: Permanent Pacemaker Device Placement Date:: 2014 Past Psychological History: No Psychological Hx Reported Smoking Status: Never smoker Past Alcohol Use History: None Reported Past Drug Use History: None Reported - Past Family History Father Family Medical History: No Reported History Medications and Allergies Home Medications Medication Instructions Recorded Confirmed Type Acetaminophen [Tylenol] 500 - 1,000 mg PO BID PRN 01/04/19 03/09/19 History Albuterol Inhaler [Ventolin Hfa 1 - 2 puff INHALATION RT-Q4H PRN 01/04/19 03/09/19 History Inhaler] Atenolol [Tenormin] 50 mg PO BID@0800,199901/04/19 03/09/19 History Atorvastatin [Lipitor] 20 mg PO HS@199901/04/19 03/09/19 History Cholecalciferol (Vitamin D3) 2,000 unit PO DAILY@0800 01/04/19 03/09/19 History [Vitamin D3] Clopidogrel Bisulfate [Plavix] 75 mg PO DAILY@0801/04/19 03/09/19 History Enalapril Maleate [Vasotec] 20 mg PO BID@799,199901/04/19 03/09/19 History Folic Acid 0.4 mg PO DAILY@0801/04/19 03/09/19 History Guaifenesin/Dextromethorphan 2.5 - 5 ml PO Q4-6H PRN 01/04/19 03/09/19 History [guaiFENesin DM] Loratadine 10 mg PO DAILY@79901/04/19 03/09/19 History Melatonin 10 mg PO HS@199901/04/19 03/09/19 History Mirtazapine 30 mg PO HS@199901/04/19 03/09/19 History Doxazosin [Cardura] 4 mg PO DAILY@79903/09/19 03/09/19 History Ipratropium-Albuterol Nebulize 3 ml INHALATION RT-DAILY PRN 03/09/19 03/09/19 History [Duoneb 0.5 mg-3 mg/3 ml Soln] Ipratropium-Albuterol Nebulize 3 ml INHALATION RT-QID 03/09/19 03/09/19 History [Duoneb 0.5 mg-3 mg/3 ml Soln] amLODIPine [Norvasc] 10 mg PO DAILY@0703/09/19 03/09/19 History Allergies Allergy/AdvReac Type Severity Reaction Status Date / Time Penicillins Allergy Unknown Verified 03/09/19 09:50 Physical Exam Vitals: Vital Signs Temp Pulse Pulse Resp BP Pulse Ox 03/10/19 16:44 96 03/10/19 15:03 54 L 18 105/56 97 03/10/19 11:36 97.4 F L 60 16 126/54 95 03/10/19 11:18 92 03/10/19 11:08 96 03/10/19 08:00 98.0 F 62 16 156/54 95 03/10/19 04:00 98.2 F 64 18 152/68 94 L 03/09/19 23:26 98.2 F 65 18 165/72 95 03/09/19 20:52 64 03/09/19 20:33 68 03/09/19 20:00 98 F 69 18 181/77 94 L 03/09/19 16:50 54 L Intake and Output 03/10/19 03/10/19 03/10/19 06:59 14:59 22:59 Intake Total 100 480 Balance 100 480 Intake: Oral 100 480 Other: Voiding Method Diaper Diaper Incontinent Incontinent # Voids 1 1 Weight 99 kg 99 kg On physical examination, patient appears comfortable in no apparent distress. HEAD: Normocephalic, atraumatic. EYES: No scleral icterus. No conjunctival injection. MOUTH: No lesions, tongue midline. NECK: Trachea midline, no gross abnormalities. CHEST: Decreased air entry in all lung cox. HEART: S1-S2, no murmurs appreciated. ABDOMEN: Soft, obese. Bowel sounds are positive. No organomegaly. No guarding or rigidity. EXTREMITIES: No pedal edema. SKIN: No rashes, no jaundice. NEUROLOGIC: Alert and oriented to person. Results CBC & Chem 7: 03/10/19 22:20 03/10/19 05:31 Labs: Abnormal Lab Results - Last 24 Hours (Table) 03/09/19 03/09/19 03/09/19 Range/Units 17:49 17:49 23:52 RBC 3.47 L 3.28 L (4.30-5.90) m/uL Hgb 11.1 L 10.6 L (13.0-17.5) gm/dL Hct 34.3 L 32.0 L (39.0-53.0) % RDW 15.8 H 16.0 H (11.5-15.5) % Plt Count 118 L 126 L (150-450) k/uL Sodium 146 H (137-145) mmol/L Chloride 109 H (98-107) mmol/L BUN 41 H (9-20) mg/dL Creatinine 1.72 H (0.66-1.25) mg/dL Glucose 155 H (74-99) mg/dL Creatine Kinase 33 L (55-170) U/L 03/10/19 03/10/19 Range/Units 05:31 05:31 RBC 3.26 L (4.30-5.90) m/uL Hgb 10.6 L (13.0-17.5) gm/dL Hct 32.1 L (39.0-53.0) % RDW 15.8 H (11.5-15.5) % Plt Count 128 L (150-450) k/uL Sodium 146 H (137-145) mmol/L Chloride 108 H (98-107) mmol/L BUN 45 H (9-20) mg/dL Creatinine 1.98 H (0.66-1.25) mg/dL Glucose 116 H (74-99) mg/dL Creatine Kinase (55-170) U/L Microbiology - Last 24 Hours (Table) 03/09/19 08:00 Blood Culture - Preliminary Blood No Growth after 24 hours Chest x-ray: report reviewed (Cardiomegaly with borderline CHF with interstitial markings noted in the lung cox on extra) Assessment and Plan (1) Rectal bleeding Narrative/Plan: 84-year-old male with multiple medical comorbidities currently admitted for increasing shortness of breath and being treated for an acute exacerbation of C HF and COPD. The patient was noted to have some perirectal bleeding suspicious for hemorrhoidal bleeding. No further episodes of bleeding since that time. Current Visit: Yes Status: Acute Code(s): K62.5 - HEMORRHAGE OF ANUS AND RECTUM SNOMED Code(s): 15163228 Plan: Supportive care Continue to monitor hemoglobin and transfuse as needed Okay for diet Continue to monitor stool output Will initiate Anusol steroid cream for local hemorrhoidal treatment No plans for endoscopic evaluation at this time, however if further rectal bleeding or fall in hemoglobin we'll reevaluate at that time Continue to hold antiplatelet therapy today, the patient remained stable can reinitiate in 48 hours Thank you for allowing us to participate in the care of the patient we will continue to follow
[2019-03-11] MEDS: predniSONE 20 MG TAB PO SCH (09:40)
[2019-03-11] MEDS: PANTOPRAZOLE 40 MG/10 ML VIAL IVP SCH ×2 (09:40→20:49)
[2019-03-11] MEDS: HYDROCORTISONE 2.5% RECTAL CREAM 30 GM TUBE RECTAL SCH ×2 (09:40→20:50)
[2019-03-11] MEDS: ATENOLOL 50 MG TAB PO SCH ×2 (09:40→20:49)
[2019-03-11] MEDS: hydrALAZINE HCL 25 MG TAB PO SCH (09:40)
[2019-03-11] MEDS: ISOSORBIDE MONONITRATE ER 30 MG TAB.ER.24H PO SCH (09:40)
[2019-03-11] MEDS: DOXAZOSIN 4 MG TAB PO SCH (09:40)
[2019-03-11] MEDS: FUROSEMIDE 10 MG/ML 4 ML VIAL IV SCH (09:40)
[2019-03-11 10:05] LABS: HCT 32.6 % (39.0-53.0); HGB 10.5 gm/dL (13.0-17.5); MCHC 32.3 g/dL (31.0-37.0); MCV 99.2 fL (80.0-100.0); Macrocytosis Slight; Mean Platelet Volume 7.1; Platelet Count 131 k/uL (150-450); RBC 3.29 m/uL (4.30-5.90); RDW 15.8 % (11.5-15.5); WBC 11.3 k/uL (3.8-10.6)
--- NOTE | 2019-03-11 13:06 | P.PN ---
Subjective Progress Note Date: 03/11/19 Principal diagnosis: CHF/COPD exacerbation, rectal bleed, hypothermia improving Patient was seen and examined. No acute events overnight. Daughter is at bedside. Daughter reports that the patient is considerably improved since admission. Daughter states that patient appears overly confused however but does have a history of dementia and is usually confused with exposure to new environments. Patient himself has no complaints. He denies any chest pain, shortness of breath or palpitations. No nausea or vomiting. No fever or chills. Objective - Vital Signs Vital signs: Vital Signs Temp 97.4 F L 03/11/19 08:00 Pulse 55 L 03/11/19 11:25 Resp 22 03/11/19 08:00 BP 194/82 03/11/19 08:00 Pulse Ox 94 L 03/11/19 08:00 Intake & Output 03/10/19 03/11/19 03/11/19 18:59 06:59 18:59 Intake Total 480 Balance 480 Weight 99 kg 97 kg Intake: Oral 480 Other: Voiding Method Diaper Diaper Diaper Incontinent Incontinent Incontinent # Voids 1 1 - Exam General: [non toxic], [no distress on 2 L nasal cannula pleasantly confused], [appears at stated age] Derm: [warm], [dry] Head: [atraumatic], [normocephalic], [symmetric] Eyes: [EOMI], [no lid lag], [anicteric sclera] Mouth: [no lip lesion], [mucus membranes moist] Cardiovascular: [S1S2 reg], [bradycardia], [positive DP pulse bilateral], Lungs: [Diffuse expiratory wheezing bilaterally], [no rhonchi, no rales] , [no accessory muscle use] Abdominal: [soft], [ nontender to palpation], [no guarding], [no appreciable organomegaly] Ext: [no gross muscle atrophy], [1+ pitting lower extremity bilateral edema], [no contractures] Neuro: [No focal deficits] Psych: [Alert and oriented 0 suspect baseline] - Labs CBC & Chem 7: 03/11/19 09:13 03/10/19 05:31 Labs: Abnormal Lab Results - Last 24 Hours (Table) 03/10/19 03/11/19 Range/Units 22:20 09:13 WBC 11.3 H (3.8-10.6) k/uL RBC 3.75 L 3.29 L (4.30-5.90) m/uL Hgb 12.3 L 10.5 L (13.0-17.5) gm/dL Hct 36.9 L 32.6 L (39.0-53.0) % RDW 15.8 H 15.8 H (11.5-15.5) % Plt Count 107 L 131 L (150-450) k/uL Microbiology - Last 24 Hours (Table) 03/09/19 08:00 Blood Culture - Preliminary Blood No Growth after 48 hours Assessment and Plan Assessment: Assessment and plan Acute metabolic encephalopathy with hypothermia Acute on chronic systolic CHF exacerbation COPD exacerbation Leukocytosis Bright red blood per rectum Acute kidney injury CAD post CABG and stent placement with permanent pacemaker and defibrillator, dyslipidemia and history of CVA Hypertension His mentation has improved this morning. Rectal temperature per RN was 92 on admission, was on Filomena Hugger, improved to 97-98 F today without intervention. No clear signs of infection or sepsis at this time. Patient is DNR/DNI. CT brain shows chronic cerebrovascular accident, age-related changes of atrophy and chronic small vessel ischemia. CTA head and neck shows cerebrovascular disease. TSH is within normal limits. Cortisol is within normal limits. Plans: Filomena Hugger as needed. Temperatures currently within normal limits we will continue to monitor. Myxedema coma ruled out. Adrenal crisis ruled out. No CVA. Follow blood cultures. BNP 1990 with chest x-ray showing vascular congestion. Troponin 0.021, 0.014, 0.019, ACS ruled out. Echocardiogram shows EF 40-45% with hypokinetic wall motion. Plans: Start diuresis with Lasix 40 mg IV daily. Continue beta claudia. Hold DENVER inhibitor due to RIAN. Strict intake and output. Daily weights. Follow-up cardiology consultation. Patient with diffuse wheezing on physical exam. Plans: DuoNeb scheduled and as needed for shortness of breath and wheezing. We will switch prednisone to Solu- Medrol. O2 per NC to maintain O2 saturation greater than 92%. Add formoterol neb twice a day. Hemoglobin 11.1 2, 10.5. Bright red blood per rectum seen by RN on admission. Plans: CBC every 6 hours. Start Protonix 40 mg IV twice a day. NDD3 diet and advance. GI consulted, recommends monitoring hemoglobin, no intervention planned for now. Creatinine 1.98. Likely due to dehydration. Possible component of CKD. Plans: Avoid nephrotoxins. Avoid IVF due to fluid overload state. Repeat BMP tomorrow morning. Hold DENVER inhibitor. Plans: Hold aspirin and Plavix. Resume beta claudia. BP 194/82. Plans: Restart atenolol and amlodipine. Cardiology added Imdur and hydralazine. Monitor vitals adjust medications as necessary. [Patient admitted for CHF/COPD exacerbation, currently on IV diuresis, optimizing COPD medications, attempt to wean oxygen currently on 2 L nasal cannula. Also admitted for acute encephalopathy found to be hypothermic, mentation and temperature improving. Found to have bright red blood per rectum, GI consulted, hemoglobin maintaining stable. Possible DC in 1-2 days if breathing is improved and no further GI bleed. Temperature will need to be monitored at [facility] in [facility].]
--- NOTE | 2019-03-11 15:28 | P.PN ---
Subjective Progress Note Date: 03/11/19 This is an 84 year old gentleman, history of dementia, history was obtained mainly from the medical record as the patient is quite confused this morning. He has a history of coronary artery disease with prior bypass surgery, prior stent placement, history of pacemaker with possible defibrillator, hypertension, hyperlipidemia, history of CVA, his daughter Elisha is the power of hand compositor. Patient was brought to the hospital apparently because of symptoms of progressively worsening shortness of breath. His mentation is also noted to be much more worse than his usual. While here in the hospital, the patient was admitted to the cardiac unit where he was noticed to have a bright red blood per rectum when they were rolling the patient over in bed. His chest x-ray on presentation here showed borderline cardiomegaly with increasing interstitial changes. New small effusions with adjacent atelectasis and/or consolidation. Correlate for CHF with pulmonary vascular congestion. EKG on presentation here shows a normal sinus rhythm with no acute changes. CAT scan of the brain shows chronic CVA, age-related changes of atrophy and chronic small vessel ischemia. CTA of the brain showed cerebral vascular disease. Blood pressure on arrival here 140/70 with a heart rate in the 50s, 91% on room air. I pressure this morning 156/50 with a heart rate in the 60s, 95% on 4 L of oxygen. He is afebrile. White blood cell count is normal, hemoglobin 10.6, platelet count 128. Sodium 146, potassium 4.6, chloride 108, BUN is 45, creatinine 1.9 this morning, 1.6 on admission. Troponins 0.021, 0.014, 0.019. BNP level in 1989. TSH 2.2, cortisol level16. At the time of my examination this morning, the patient is quite confused, he is unsure of where he is at, and he is pointing to things in the room that do not exist. 03/11/2019 Patient was seen and examined today, continues to be confused, no complaints, denies having any chest pain or shortness of breath. Blood pressure 118/50 with a heart rate in the 50s, 95% on room air. White blood cell count 11.3, hemoglobin 10.5, platelet count 131. Echocardiogram with Doppler study was performed which revealed an ejection fraction of 40-45%, inferior lateral hypokinesia. Patient continues to be on IV Lasix. Objective - Vital Signs Vital signs: Vital Signs Temp 97.4 F L 03/11/19 08:00 Pulse 52 L 03/11/19 15:12 Resp 20 03/11/19 15:12 BP 118/56 03/11/19 12:00 Pulse Ox 95 03/11/19 12:00 Intake & Output 03/10/19 03/11/19 03/11/19 18:59 06:59 18:59 Intake Total 480 360 Balance 480 360 Weight 99 kg 97 kg Intake: Oral 480 360 Other: Voiding Method Diaper Diaper Diaper Incontinent Incontinent Incontinent # Voids 1 1 - Exam PHYSICAL EXAMINATION: GENERAL: 84 stroke gentleman in no acute distress at the time of my examination HEENT: Head is atraumatic, normocephalic. Pupils equal, round. Sclera anicteric. Conjunctiva are clear. Mucous membranes of the mouth are moist. Neck is supple. There is elevated jugular venous pressure. No carotid bruit is heard. HEART EXAMINATION: Heart S1 and S2 with soft systolic murmur is heard CHEST EXAMINATION: On's reveal diminished air entry to the bases bilaterally ABDOMEN: [ Soft, nontender. Bowel sounds are heard. No organomegaly noted]. EXTREMITIES:[ 2+ peripheral pulses with 1-2+ evidence of peripheral edema and no calf tenderness noted]. NEUROLOGIC [patient is awake, alert, confused - Labs CBC & Chem 7: 03/11/19 09:13 03/10/19 05:31 Labs: Abnormal Lab Results - Last 24 Hours (Table) 03/10/19 03/11/19 Range/Units 22:20 09:13 WBC 11.3 H (3.8-10.6) k/uL RBC 3.75 L 3.29 L (4.30-5.90) m/uL Hgb 12.3 L 10.5 L (13.0-17.5) gm/dL Hct 36.9 L 32.6 L (39.0-53.0) % RDW 15.8 H 15.8 H (11.5-15.5) % Plt Count 107 L 131 L (150-450) k/uL Microbiology - Last 24 Hours (Table) 03/09/19 08:00 Blood Culture - Preliminary Blood No Growth after 48 hours Assessment and Plan Plan: Assessment and plan #1 congestive heart failure, LV function unknown #2 bright red bleeding per rectum, possible acute GI bleed. #3 coronary artery disease with prior bypass surgery and stent placements exact details unavailable #4 acute on chronic kidney injury #5 history of a pacemaker/defibrillator #6 hypertension #7 hyperlipidemia #8 dementia with a worsening in mentation Plan Echocardiogram with Doppler study revealed an ejection fraction of 40-45%. We will discontinue the Norvasc because of the reduced LV function, increase hydralazine. DNP note has been reviewed, I agree with a documented findings and plan of care. Patient was seen and examined.
[2019-03-11] MEDS: methylPREDNISolone SOD SUCCI 125 MG/2 ML VIAL IV SCH ×2 (16:18→23:46)
[2019-03-11] MEDS: MELATONIN 5 MG TABLET PO SCH (20:49)
[2019-03-11] MEDS: MIRTAZAPINE 15 MG TAB PO SCH (20:49)
[2019-03-11] MEDS: ATORVASTATIN 20 MG TAB PO SCH (20:49)
[2019-03-11] MEDS ORDERED: hydrALAZINE HCL 50 MG TAB PO SCH (21:00)
[2019-03-11 23:11] LABS: HCT 33.4 % (39.0-53.0); HGB 10.6 gm/dL (13.0-17.5); MCH 31.6 pg (25.0-35.0); MCHC 31.6 g/dL (31.0-37.0); MCV 99.8 fL (80.0-100.0); Macrocytosis Slight; Mean Platelet Volume 7.1; Platelet Count 135 k/uL (150-450); RBC 3.35 m/uL (4.30-5.90); RDW 15.8 % (11.5-15.5); WBC 9.1 k/uL (3.8-10.6)
[2019-03-12 06:30] LABS: HGB 10.8 gm/dL (13.0-17.5); MCH 31.4 pg (25.0-35.0); MCHC 31.8 g/dL (31.0-37.0); MCV 98.7 fL (80.0-100.0); Macrocytosis Slight; Mean Platelet Volume 7.1; Platelet Count 136 k/uL (150-450); RBC 3.44 m/uL (4.30-5.90); RDW 15.7 % (11.5-15.5); WBC 9.1 k/uL (3.8-10.6)
[2019-03-12] MEDS: amLODIPine 10 MG TAB PO SCH (07:07)
[2019-03-12 07:15] LABS: Glucose,Whole Blood 141 mg/dL (75-99)
[2019-03-12] MEDS: INSULIN ASPART (NovoLOG) 100 UNIT/ML VIAL SQ SCH ×2 (07:16→12:44)
--- NOTE | 2019-03-12 08:07 | XR ---
EXAMINATION TYPE: XR chest 1V portable DATE OF EXAM: 03/12/2019 COMPARISON: Prior chest x-ray 03/09/2019 HISTORY: Shortness of breath TECHNIQUE: Single frontal view of the chest is obtained. FINDINGS: Generator in the left pectoral region, leads in the right atrium and ventricle are again s een. There is no pneumothorax or evident effusion. Heart size is enlarged as on prior, patient is pos t median sternotomy. Interstitium is mildly increased as on prior. No evident airspace disease. Patie nt is rotated. IMPRESSION: Findings are similar to prior exam. Correlate for pulmonary venous hypertension and inte rstitial edema, there may be some slight interval improvement in aeration, follow-up recommended
[2019-03-12] MEDS: FORMOTEROL FUMARATE 20 MCG/2 ML NEBU INHALATION SCH (09:24)
[2019-03-12] MEDS: IPRATROPIUM-ALBUTEROL 3 ML NEB INHALATION SCH ×2 (09:24→13:16)
[2019-03-12] MEDS: predniSONE 20 MG TAB PO SCH ×2 (09:26→10:49)
[2019-03-12] MEDS: ISOSORBIDE MONONITRATE ER 30 MG TAB.ER.24H PO SCH (09:26)
[2019-03-12] MEDS: FUROSEMIDE 10 MG/ML 4 ML VIAL IV SCH (09:27)
[2019-03-12] MEDS: ATENOLOL 50 MG TAB PO SCH (09:27)
[2019-03-12] MEDS: PANTOPRAZOLE 40 MG/10 ML VIAL IVP SCH (09:28)
[2019-03-12] MEDS: DOXAZOSIN 4 MG TAB PO SCH (09:28)
[2019-03-12] MEDS: methylPREDNISolone SOD SUCCI 125 MG/2 ML VIAL IV SCH (09:35)
--- NOTE | 2019-03-12 11:20 | P.PN ---
Subjective Progress Note Date: 03/12/19 This is an 84 year old gentleman, history of dementia, history was obtained mainly from the medical record as the patient is quite confused this morning. He has a history of coronary artery disease with prior bypass surgery, prior stent placement, history of pacemaker with possible defibrillator, hypertension, hyperlipidemia, history of CVA, his daughter Elisha is the power of tax associate attorney. Patient was brought to the hospital apparently because of symptoms of progressively worsening shortness of breath. His mentation is also noted to be much more worse than his usual. While here in the hospital, the patient was admitted to the cardiac unit where he was noticed to have a bright red blood per rectum when they were rolling the patient over in bed. His chest x-ray on presentation here showed borderline cardiomegaly with increasing interstitial changes. New small effusions with adjacent atelectasis and/or consolidation. Correlate for CHF with pulmonary vascular congestion. EKG on presentation here shows a normal sinus rhythm with no acute changes. CAT scan of the brain shows chronic CVA, age-related changes of atrophy and chronic small vessel ischemia. CTA of the brain showed cerebral vascular disease. Blood pressure on arrival here 140/70 with a heart rate in the 50s, 91% on room air. I pressure this morning 156/50 with a heart rate in the 60s, 95% on 4 L of oxygen. He is afebrile. White blood cell count is normal, hemoglobin 10.6, platelet count 128. Sodium 146, potassium 4.6, chloride 108, BUN is 45, creatinine 1.9 this morning, 1.6 on admission. Troponins 0.021, 0.014, 0.019. BNP level in 1989. TSH 2.2, cortisol level16. At the time of my examination this morning, the patient is quite confused, he is unsure of where he is at, and he is pointing to things in the room that do not exist. 03/11/2019 Patient was seen and examined today, continues to be confused, no complaints, denies having any chest pain or shortness of breath. Blood pressure 118/50 with a heart rate in the 50s, 95% on room air. White blood cell count 11.3, hemoglobin 10.5, platelet count 131. Echocardiogram with Doppler study was performed which revealed an ejection fraction of 40-45%, inferior lateral hypokinesia. Patient continues to be on IV Lasix. 03/12/2019 Patient seen and examined this morning, blood pressure 134/60 with a heart rate in the 60s, 94% on 2 L of oxygen. We will decrease the patient's Norvasc and increase the hydralazine today. Objective - Vital Signs Vital signs: Vital Signs Temp 98.1 F 03/12/19 09:40 Pulse 64 03/12/19 09:44 Resp 16 03/12/19 09:40 BP 134/68 03/12/19 09:40 Pulse Ox 94 L 03/12/19 09:40 Intake & Output 03/11/19 03/12/19 03/12/19 18:59 06:59 18:59 Intake Total 360 80 100 Balance 360 80 100 Weight 97 kg Intake: Oral 360 80 100 Other: Voiding Method Diaper Diaper Diaper Incontinent Incontinent Incontinent # Voids 2 1 1 # Bowel Movements 2 0 - Exam PHYSICAL EXAMINATION: GENERAL: 84 stroke gentleman in no acute distress at the time of my examination HEENT: Head is atraumatic, normocephalic. Pupils equal, round. Sclera anicteric. Conjunctiva are clear. Mucous membranes of the mouth are moist. Neck is supple. There is elevated jugular venous pressure. No carotid bruit is heard. HEART EXAMINATION: Heart S1 and S2 with soft systolic murmur is heard CHEST EXAMINATION: On's reveal diminished air entry to the bases bilaterally ABDOMEN: [ Soft, nontender. Bowel sounds are heard. No organomegaly noted]. EXTREMITIES:[ 2+ peripheral pulses with 1-2+ evidence of peripheral edema and no calf tenderness noted]. NEUROLOGIC [patient is awake, alert, confused - Labs CBC & Chem 7: 03/12/19 05:38 03/10/19 05:31 Labs: Abnormal Lab Results - Last 24 Hours (Table) 03/11/19 03/12/19 03/12/19 Range/Units 22:17 05:38 07:11 RBC 3.35 L 3.44 L (4.30-5.90) m/uL Hgb 10.6 L 10.8 L (13.0-17.5) gm/dL Hct 33.4 L 34.0 L (39.0-53.0) % RDW 15.8 H 15.7 H (11.5-15.5) % Plt Count 135 L 136 L (150-450) k/uL POC Glucose (mg/dL) 141 H (75-99) mg/dL Microbiology - Last 24 Hours (Table) 03/09/19 08:00 Blood Culture - Preliminary Blood No Growth after 72 hours Assessment and Plan Plan: Assessment and plan #1 congestive heart failure, LV function unknown #2 bright red bleeding per rectum, possible acute GI bleed. #3 coronary artery disease with prior bypass surgery and stent placements exact details unavailable #4 acute on chronic kidney injury #5 history of a pacemaker/defibrillator #6 hypertension #7 hyperlipidemia #8 dementia with a worsening in mentation Plan Echocardiogram with Doppler study revealed an ejection fraction of 40-45%. We will decrease the Norvasc , and increase the dose of hydralazine . We'll follow this patient along with you now on an as-needed basis only, please don't hesitate to call with any questions DNP note has been reviewed, I agree with a documented findings and plan of care. Patient was seen and examined.
[2019-03-12 11:46] VITALS: BP 126/55; RESP 20; TEMP 97.8
[2019-03-12 12:12] LABS: Glucose,Whole Blood 136 mg/dL (75-99)
[2019-03-12] MEDS: HYDROCORTISONE 2.5% RECTAL CREAM 30 GM TUBE RECTAL SCH (12:44)
[2019-03-12 13:16] LABS: Calcium 9.7 mg/dL (8.4-10.2); Potassium 4.3 mmol/L (3.5-5.1)
[2019-03-12 13:28] VITALS: PULSE 64
--- NOTE | 2019-03-12 15:54 | P.DS ---
Providers Date of admission: 03/09/19 09:25 Expected date of discharge: 03/12/19 Attending physician: George Restrepo MD Consults: 03/09/19 09:25 Consult Physician Routine Consulting Provider: Iraj Hdz Consult Reason/Comments: CHF exacerbation Do you want consulting provider notified?: Yes, Notify in am Primary care physician: Popeye Hicks Hospital Course: Discharge diagnoses Acute metabolic encephalopathy with hypothermia Acute on chronic systolic CHF exacerbation Acute COPD exacerbation Delirium superimposed on dementia Acute kidney injury Leukocytosis anemia hemorrhoids History of CVA history of coronary artery disease with prior bypass surgery and stent placements Hospital course The patient is a 84-year-old male that was admitted from assisted living at [facility] after he presented here with his daughter with reports of confusion and increasing shortness of breath and hypothermia. Patient was admitted for dyspnea of multifactorial etiology secondary to acute COPD exacerbation in the setting of acute on chronic systolic CHF flare. A workup included a CT of the head that showed chronic CVA and age-related changes of atrophy and chronic small vessel ischemia, echocardiogram showed LVEF of 40- 45% with inferior lateral hypokinesis, mildly dilated left atrium without any significant valvular abnormalities. NT proBNP was 1990 initial chest x-ray showed cardiomegaly with increasing interstitial changes, troponin was 0.021, EKG showed sinus mechanism without any acute changes. Patient was started on diuresis with IV Lasix And he was continued on atenolol and Norvasc. Patient was noted to have a mild anemia with a hemoglobin of 11.1, GI was consulted and determined that it was likely the patient had hemorrhoids and patient was started on Anusol HC, the patient was also started on albuterol Atrovent bronchodilator DuoNeb along with systemic steroids with IV Solu-Medrol and formoterol. She was noted to have acute kidney injury superimposed on chronic kidney disease due to diuresis with Lasix. In discussion with the patient's family the patient's daughter medical DPOA elected for the patient to be placed on hospice on discharge to [facility]. This discharge process took approximately 35 minutes Focused exam Neuro: Pleasantly demented, patient awake and confused, cranial nerves II-12 grossly intact Patient Condition at Discharge: Stable Plan - Discharge Summary New Discharge Prescriptions: New hydrALAZINE HCL [Apresoline] 75 mg PO BID #60 tab Isosorbide Mononitrate ER [Imdur] 30 mg PO DAILY #30 tab.er.24h amLODIPine [Norvasc] 5 mg PO DAILY@0700 #30 tab predniSONE 40 mg PO DAILY tab Continue Albuterol Inhaler [Ventolin Hfa Inhaler] 1 - 2 puff INHALATION RT-Q4H PRN PRN Reason: Shortness Of Breath Acetaminophen [Tylenol] 500 - 1,000 mg PO BID PRN PRN Reason: Pain Folic Acid 0.4 mg PO DAILY@0800 Cholecalciferol (Vitamin D3) [Vitamin D3] 2,000 unit PO DAILY@0800 Mirtazapine 30 mg PO HS@1999 Melatonin 10 mg PO HS@1999 Loratadine 10 mg PO DAILY@0800 Clopidogrel Bisulfate [Plavix] 75 mg PO DAILY@0800 Atorvastatin [Lipitor] 20 mg PO HS@1999 Atenolol [Tenormin] 50 mg PO BID@799,1999 Guaifenesin/Dextromethorphan [guaiFENesin DM] 2.5 - 5 ml PO Q4-6H PRN PRN Reason: Cough Doxazosin [Cardura] 4 mg PO DAILY@0800 Ipratropium-Albuterol Nebulize [Duoneb 0.5 mg-3 mg/3 ml Soln] 3 ml INHALATION RT-QID Ipratropium-Albuterol Nebulize [Duoneb 0.5 mg-3 mg/3 ml Soln] 3 ml INHALATION RT-DAILY PRN PRN Reason: Shortness Of Breath Discontinued Enalapril Maleate [Vasotec] 20 mg PO BID@0800,1999 amLODIPine [Norvasc] 10 mg PO DAILY@0700 Discharge Medication List Acetaminophen [Tylenol] 500 - 1,000 mg PO BID PRN 01/04/19 [History] Albuterol Inhaler [Ventolin Hfa Inhaler] 1 - 2 puff INHALATION RT-Q4H PRN 01/04/19 [History] Atenolol [Tenormin] 50 mg PO BID@0800,199901/04/19 [History] Atorvastatin [Lipitor] 20 mg PO HS@199901/04/19 [History] Cholecalciferol (Vitamin D3) [Vitamin D3] 2,000 unit PO DAILY@0800 01/04/19 [History] Clopidogrel Bisulfate [Plavix] 75 mg PO DAILY@0800 01/04/19 [History] Folic Acid 0.4 mg PO DAILY@79901/04/19 [History] Guaifenesin/Dextromethorphan [guaiFENesin DM] 2.5 - 5 ml PO Q4-6H PRN 01/04/19 [History] Loratadine 10 mg PO DAILY@79901/04/19 [History] Melatonin 10 mg PO HS@199901/04/19 [History] Mirtazapine 30 mg PO HS@199901/04/19 [History] Doxazosin [Cardura] 4 mg PO DAILY@0803/09/19 [History] Ipratropium-Albuterol Nebulize [Duoneb 0.5 mg-3 mg/3 ml Soln] 3 ml INHALATION RT-DAILY PRN 03/09/19 [History] Ipratropium-Albuterol Nebulize [Duoneb 0.5 mg-3 mg/3 ml Soln] 3 ml INHALATION RT-QID 03/09/19 [History] Isosorbide Mononitrate ER [Imdur] 30 mg PO DAILY #30 tab.er.24h 03/12/19 [Rx] amLODIPine [Norvasc] 5 mg PO DAILY@0700 #30 tab 03/12/19 [Rx] hydrALAZINE HCL [Apresoline] 75 mg PO BID #60 tab 03/12/19 [Rx] predniSONE 40 mg PO DAILY tab 03/12/19 [Rx] Follow up Appointment(s)/Referral(s): Popeye Hicks MD [Primary Care Provider] - 1-2 days Discharge Disposition: TRANSFER TO SNF/F
[2019-03-12] MEDS ORDERED: hydrALAZINE HCL 25 MG TAB PO SCH (21:00)
[2019-03-13] MEDS ORDERED: amLODIPine 5 MG TAB PO SCH (07:00)
== END 2019-03-12 16:15 | disposition home health service (06) | DRG 291 ==
LOC: EC 07:50 → 3SCARD 09:25
PROVIDERS: ADMIT Family Medicine; ATTEND Family Medicine
DX: I13.0 Hypertensive heart and chronic kidney disease with heart failure and stage 1 through stage 4 chronic kidney disease, or unspecified chronic kidney disease (principal); G93.41 Metabolic encephalopathy; I50.23 Acute on chronic systolic (congestive) heart failure; F05 Delirium due to known physiological condition; J44.1 Chronic obstructive pulmonary disease with (acute) exacerbation; N17.9 Acute kidney failure, unspecified; D64.9 Anemia, unspecified; D72.829 Elevated white blood cell count, unspecified; E78.5 Hyperlipidemia, unspecified; E86.0 Dehydration; F03.90 Unspecified dementia, unspecified severity, without behavioral disturbance, psychotic disturbance, mood disturbance, and anxiety; I25.10 Atherosclerotic heart disease of native coronary artery without angina pectoris; K64.9 Unspecified hemorrhoids; N18.3 Chronic kidney disease, stage 3 (moderate); R09.02 Hypoxemia; T50.2X5A Adverse effect of carbonic-anhydrase inhibitors, benzothiadiazides and other diuretics, initial encounter; Z51.5 Encounter for palliative care; Z66 Do not resuscitate; Z79.02 Long term (current) use of antithrombotics/antiplatelets; Z79.899 Other long term (current) drug therapy; Z86.73 Personal history of transient ischemic attack (TIA), and cerebral infarction without residual deficits; Z95.0 Presence of cardiac pacemaker; Z95.1 Presence of aortocoronary bypass graft; Z95.5 Presence of coronary angioplasty implant and graft; Z88.0 Allergy status to penicillin
CPT/HCPCS: 36415; 70450; 70496; 71045; 71046; 80048; 80053; 82533; 82550; 83605; 83880; 84443; 84484; 85025; 85027; 85610; 85730; 87040; 93005; 93306; 94640; 94760; 96374; 99285